=== PATIENT | female | born 1945 | race Caucasian/White ===

== ENCOUNTER 2016-07-09 09:48 | Day surgery (SDC) | payer BC ==
[2016-06-11 11:10] LABS: HEMATOCRIT 34.7 % (36.0-47.0); HEMOGLOBIN 11.3 g/dL (12.0-15.5); HGB HCT DIFFERENCE -0.8; MEAN CORPUSCULAR HEMOGLOBIN 29.1 pg (27.0-33.4); MEAN CORPUSCULAR HGB CONC 32.6 g/dL (32.0-36.0); MEAN CORPUSCULAR VOLUME 89 fl (80-97); RED BLOOD COUNT 3.88 10^6/uL (3.72-5.28); RED CELL DISTRIBUTION WIDTH 14.9 % (11.5-14.0); WHITE BLOOD COUNT 5.9 10^3/uL (4.0-10.5)
[2016-06-11 11:39] LABS: ANION GAP 11 (5-19); BLOOD UREA NITROGEN 20 mg/dL (7-20); CALCIUM 9.7 mg/dL (8.4-10.2); CARBON DIOXIDE 30 mmol/L (22-30); CHLORIDE 104 mmol/L (98-107); GLUCOSE 92 mg/dL (75-110); POTASSIUM 4.9 mmol/L (3.6-5.0); SODIUM 145.3 mmol/L (137-145)
--- NOTE | 2016-06-11 18:18 | EKG REPORT ---
SEVERITY:- DEFECTIVE ECG - NONSPECIFIC IVCD WITH LAD : Confirmed by: Sohail Ocampo MD 11-Jun-2016 18:18:03
--- NOTE | 2016-06-12 18:54 | EKG REPORT ---
SEVERITY:- ABNORMAL ECG - SINUS RHYTHM LEFT AXIS DEVIATION LEFT VENTRICULAR HYPERTROPHY : Confirmed by: Sohail Ocampo MD 12-Jun-2016 18:54:23
[~2016-07-09 09:48] MED LIST: CEFAZOLIN SODIUM 1 GM in DEXTROSE 5%-WATER 50 ML IV PRN; DEXAMETHASONE SOD PHOSPHATE INJ 4 MG/1 ML VIAL ONE; LACTATED RINGERS 1000 ML IV PRN; LIDOCAINE 0.5% INJ-PF (5 MG/ML) 50 ML SDV SUBCUT PRN; LIDOCAINE 4% TRANSPARENT DRESSING 5 GM KIT TP PRN; ONDANSETRON HCL INJ/PF 4 MG/2 ML SDV ONE; SUCCINYLCHOLINE CHLORIDE INJ 200 MG/10 ML VIAL ONE
[2016-07-09] MEDS ORDERED: MICROFIBRILLAR COLLAGEN 1 GM PACK ONE (13:20)
[2016-07-09] MEDS ORDERED: METHYLENE BLUE INJ/PF 10 MG/1 ML SDV ONE (13:20)
[2016-07-09] MEDS ORDERED: LIDOCAINE 1%/EPINEPHRINE INJ 20 ML VIAL ONE (13:20)
[2016-07-09] MEDS ORDERED: FENTANYL CITRATE INJ/PF 250 MCG/5 ML AMPULE ONE (14:51)
[2016-07-09] MEDS ORDERED: HYDROMORPHONE HCL INJ/PF 2 MG/ML AMPULE ONE (14:51)
[2016-07-09] MEDS ORDERED: MIDAZOLAM 2 MG/2 ML INJ ONE (14:51)
[2016-07-09] MEDS ORDERED: PROPOFOL INJ 200 MG/20 ML VIAL IV ONE (14:52)
[2016-07-09] MEDS ORDERED: ACETAMINOPHEN 100 ML IV ONE (14:52)
[2016-07-09] MEDS ORDERED: EPHEDRINE SULFATE INJ 50 MG/1 ML AMPULE ONE (14:52)
[2016-07-09] MEDS ORDERED: MEPERIDINE HCL/PF INJ 25 MG/1 ML DISP.SYRIN IV PRN (17:18)
[2016-07-09] MEDS ORDERED: DIPHENHYDRAMINE HCL 50 MG/ML VIAL IV PRN (17:18)
[2016-07-09] MEDS ORDERED: PROMETHAZINE HCL INJ 25 MG/1 ML VIAL IV PRN ×2 (17:18)
[2016-07-09] MEDS ORDERED: OXYCODONE-ACETAMINOPHEN 5-325 MG TABLET PO PRN ×3 (17:18→17:48)
[2016-07-09] MEDS ORDERED: MORPHINE SULFATE 10 MG/ML INJ IV PRN (17:18)
[2016-07-09] MEDS ORDERED: FENTANYL CITRATE INJ/PF 100 MCG/2 ML AMPUL IV PRN ×3 (17:18)
--- NOTE | 2016-07-09 17:47 | Operative Report ---
Operative Report DATE OF SURGERY: 07/09/16 PREOPERATIVE DIAGNOSIS: Triple positive right breast cancer status post neoadjuvant 4 component chemotherapy POSTOPERATIVE DIAGNOSIS: Same OPERATION: 1. Right mastectomy. 2. Right sentinel lymph node biopsy 1. 3. Drain placement right chest wall SURGEON: SERA RUBY ANESTHESIA: GA TISSUE REMOVED OR ALTERED: Right breast; into the lymph node biopsy times one; inferior chest wall skin margin COMPLICATIONS: None ESTIMATED BLOOD LOSS: 50 mL INTRAOPERATIVE FINDINGS: see below PROCEDURE: The patient was seen in the preop holding area with a right breast was examined. The patient previously undergone lymphoscintigraphy of the right breast and there was an area of increased uptake in the right axilla. At bedside in the holding area, the neoprobe was demonstrated to have increased activity in the right axilla consistent with a successful migration of radionuclide. Patient taken the operating room general anesthesia was induced. The right arm was abducted. Proceeded to utilize the dual mapping technique, and injected into the right breast, periareolar region, 10 o'clock position approximately 2 mL of full strength methylene blue with 25-gauge needle. Right breast was massaged for 7 minutes. The right arm was thoroughly abducted and the right breast prepped and draped sterile fashion. Surgical plan surgical timeout were conducted. Markings were made on the right breast for plan mastectomy. An elliptical from below the areola and axilla to the right parasternal region. Superior and inferior skin flaps of satisfactory thickness was developed with subsequent taken off of the chest wall from the subpectoral fascia down to the serratus anterior musculature. We did not encounter any fibrosis or evidence of malignancy. We proceeded to perform the sentinel node biopsy now that we have excellent exposure merging axilla. A single sentinel lymph node was harvested which was blue and hot in vivo count was 23,900 and ex vivo count was 24, 101. Chronic counts were negligible. Only one sentinel lymph node was harvested. Chest medially and laterally and inferiorly and found no further radionuclear activity. We concluded the sentinel node harvest with finished. A large 15 Hungarian Naveed drain was placed inferior skin flap, secured to skin with 2-0 Prolene suture, and the wound closed with 2-0 Vicryl and Dermabond glue. Prior to closure of the mastectomy wound, of the inferior skin flap was sharply debrided was sent with the mastectomy specimen as inferior skin flap. The patient on procedure well, extubated and taken recovery in stable condition.
[2016-07-09] MEDS ORDERED: ONDANSETRON HCL INJ/PF 4 MG/2 ML SDV IV PRN (17:48)
[2016-07-09] MEDS ORDERED: FENTANYL CITRATE INJ/PF 100 MCG/2 ML AMPUL ONE (18:08)
[2016-07-09] MEDS ORDERED: FENTANYL CITRATE INJ/PF 100 MCG/2 ML AMPUL INJ ONE (18:11)
[2016-07-10] MEDS ORDERED: RINGERS SOLUTION,LACTATED 1,000 ML IV ONE (04:15)
[2016-07-10] MEDS ORDERED: IBUPROFEN 600 MG TABLET PO PRN (07:46)
--- NOTE | 2016-07-10 10:20 | DISCHARGE SUMMARY E ---
Discharge Summary NAME: CLAUDIA MAY : 1945 AGE: 70Y ADMITTED: 07/09/2016 DISCHARGED: 07/10/2016 REASON FOR ADMISSION: Right breast cancer. HOSPITALIZATION: The patient is a 70[facility]-old [facility] with triple positive right breast cancer status post neoadjuvant chemotherapy. She is brought into ambulatory surgery for sentinel node biopsy, mastectomy. The procedure was performed by Dr. Fajardo. She tolerated the procedure well. Due to lateness of hour, she was admitted overnight for observation. The following morning, she was doing well, tolerating a diet and understood her drain care. Her flaps were viable. She was felt ready for discharge home. FINAL DIAGNOSIS: Triple positive right breast cancer status post neoadjuvant chemotherapy, now status post right mastectomy, sentinel node biopsy and drain placement. DISPOSITION: The patient will be discharged home in the care of family. Followup with Dr. Fajardo in approximately one week. Take Motrin for p.r.n. pain. Resume her preoperative medications and diet. DICTATING PHYSICIAN: SERA FAJARDO M.D. [id number] PHY#: [id number] ID: [id number] JOB#: [id number] ACCT: [id number] cc:SERA FAJARDO M.D. >
[2016-07-10 12:36] VITALS: BP 107/54
== END 2016-07-10 13:30 | disposition home or self-care (01) ==
LOC: OROUT 09:48 → 4N 19:00 → OROUT 07-10 13:30
PROVIDERS: ATTEND Surgery
PROC: 07B50ZX Excision of Right Axillary Lymphatic, Open Approach, Diagnostic (ICD-10-PCS; 2016-07-09)
PROC: 0HTT0ZZ Resection of Right Breast, Open Approach (ICD-10-PCS; principal; 2016-07-09 13:30)
DX: C50.919 Malignant neoplasm of unspecified site of unspecified female breast (principal); E78.00 Pure hypercholesterolemia, unspecified; M06.9 Rheumatoid arthritis, unspecified; I10 Essential (primary) hypertension; Z79.899 Other long term (current) drug therapy
CPT/HCPCS: 93005 ×2; 36415; 85027; 80048; 88342 ×2; 88341 ×2; 88307 ×2; 78195; 93010 ×2; 19307; A9520; J2250; J0690; J1100; J3490 ×2; J3010 ×2; Q9968; J1170; J0330; J2405; J7120 ×2; J2704; J0131; 1610

== ENCOUNTER 2016-07-12 09:59 | Emergency (ER) | payer MEDICARE, BC ==
--- NOTE | 2016-07-12 10:08 | ER Document Report ---
ED Medical Screen (RME) - General Stated Complaint: DIZZINESS Mode of Arrival: Wheelchair Information source: Patient Notes: Patient presents complaining of dizziness and hypotension, family report the patient's blood pressure was 80/67 at home. Patient is status post recent mastectomy on 07/09/2016. Patient denies any chest pain, nausea, or vomiting. Patient does report shortness of breath. Family states that she has had problems with hypotension since her mastectomy. I have greeted and performed a rapid initial assessment of this patient. A comprehensive ED assessment and evaluation of the patient, analysis of test results and completion of the medical decision making process will be conducted by additional ED providers. TRAVEL OUTSIDE OF THE [place] IN LAST 30 DAYS: No - Related Data Allergies/Adverse Reactions: No Known Allergies Allergy (Verified 07/12/16 10:03) Past Medical History - Past Medical History Cardiac Medical History: Reports: Hx Hypertension Denies: Hx Coronary Artery Disease, Hx Heart Attack Pulmonary Medical History: Denies: Hx Asthma, Hx Bronchitis, Hx COPD, Hx Pneumonia Neurological Medical History: Denies: Hx Cerebrovascular Accident, Hx Seizures Malignancy Medical History: Reports: Hx Breast Cancer - Right Musculoskeltal Medical History: Reports Hx Arthritis - rt hip worse than left Past Surgical History: Reports: Hx Appendectomy, Hx Hysterectomy - Immunizations Hx Diphtheria, Pertussis, Tetanus Vaccination: No Physical Exam - Respiratory Respiratory status: No respiratory distress Breath sounds: Normal
--- NOTE | 2016-07-12 10:32 | EKG REPORT ---
SEVERITY:- NORMAL ECG - SINUS RHYTHM : Confirmed by: Myles Crystal 12-Jul-2016 10:32:26
[2016-07-12] MEDS ORDERED: NORMAL SALINE 1000 ML 1,000 ML IV ONE (11:15)
--- NOTE | 2016-07-12 11:19 | ER Document Report ---
ED Dizziness/Weakness - General Chief Complaint: Dizziness Stated Complaint: DIZZINESS Mode of Arrival: Wheelchair Notes: The patient is a 70 year old female, past medical history breast cancer status post mastectomy 4 days ago, vertigo, hypertension, presents with an episode of lightheadedness and vertiginous symptoms started earlier today. Her daughter took the blood pressure and it was 80/50. She did not take her blood pressure medications this morning. She is also feeling mild shortness of breath. Denies ataxia, blurry vision, numbness, tingling, headache, chest pain, abdominal pain, nausea, vomiting fevers or urinary symptoms. TRAVEL OUTSIDE OF THE [place] IN LAST 30 DAYS: No - Related Data Allergies/Adverse Reactions: No Known Allergies Allergy (Verified 07/12/16 10:03) Past Medical History - General Information source: Patient - Social History Smoking Status: Unknown if Ever Smoked Chew tobacco use (# tins/day): No Frequency of alcohol use: None Drug Abuse: None Family History: Reviewed & Not Pertinent Patient has suicidal ideation: No Patient has homicidal ideation: No - Past Medical History Cardiac Medical History: Reports: Hx Hypertension Denies: Hx Coronary Artery Disease, Hx Heart Attack Pulmonary Medical History: Denies: Hx Asthma, Hx Bronchitis, Hx COPD, Hx Pneumonia Neurological Medical History: Denies: Hx Cerebrovascular Accident, Hx Seizures Renal/ Medical History: Denies: Hx Peritoneal Dialysis Malignancy Medical History: Reports: Hx Breast Cancer - Right Musculoskeltal Medical History: Reports Hx Arthritis - rt hip worse than left Past Surgical History: Reports: Hx Appendectomy, Hx Hysterectomy - Immunizations Hx Diphtheria, Pertussis, Tetanus Vaccination: No Review of Systems - Review of Systems Notes: REVIEW OF SYSTEMS: CONSTITUTIONAL: -fevers, -chills EENT: -eye pain, -difficulty swallowing, -nasal congestion CARDIOVASCULAR:-chest pain, -syncope. RESPIRATORY: -cough, +SOB GASTROINTESTINAL: -abdominal pain, - nausea, -vomiting, -diarrhea GENITOURINARY: -dysuria, -hematuria MUSCULOSKELETAL: -back pain, -neck pain SKIN: -rash or skin lesions. HEMATOLOGIC: -easy bruising or bleeding. LYMPHATIC: -swollen, enlarged glands. NEUROLOGICAL: -altered mental status or loss of consciousness, -headache, - neurologic symptoms PSYCHIATRIC: -anxiety, -depression. ALL OTHER SYSTEMS REVIEWED AND NEGATIVE. Physical Exam - Vital signs Vitals: Temp Pulse Resp BP Pulse Ox 97.9 F 83 14 144/63 H 100 07/12/16 10:04 07/12/16 10:04 07/12/16 10:04 07/12/16 10:04 07/12/16 10:04 - Notes Notes: PHYSICAL EXAMINATION: GENERAL: Well-appearing, well-nourished and in no acute distress. HEAD: Atraumatic, normocephalic. EYES: Pupils equal round and reactive to light, extraocular movements intact, sclera anicteric, conjunctiva are normal. ENT: nares patent, oropharynx clear without exudates. Moist mucous membranes. NECK: Normal range of motion, supple without lymphadenopathy LUNGS: Breath sounds clear to auscultation bilaterally and equal. No wheezes rales or rhonchi. 50 mL blood in drain out of right chest wall. HEART: Regular rate and rhythm without murmurs ABDOMEN: Soft, nontender, normoactive bowel sounds. No guarding, no rebound. No masses appreciated. EXTREMITIES: Normal range of motion, no pitting or edema. No cyanosis. NEUROLOGICAL: Cranial nerves grossly intact. Normal speech, normal gait. Normal sensory, motor, and reflex exams. PSYCH: Normal mood, normal affect. SKIN: Well-healing surgical scars with contusions. Warm, Dry, normal turgor, no rashes or lesions noted. Course - Re-evaluation Re-evalutation: High suspicion for PE on arrival with hypotension, mild shortness of breath and recent mastectomy from breast cancer. CTA does not show any evidence of PE. Labs are unremarkable. Multiple repeat blood pressures in the emergency room are 120's/80's. No orthostatic symptoms after IV fluids. Told patient to hold off on taking her losartan and to keep a log of her blood pressures. Also instructed her to drink plenty of fluids. Will have her follow-up with her primary care physician in 1-2 days. Given strict return precautions and she understands. - Vital Signs Vital signs: Temp Pulse Resp BP Pulse Ox 97.9 F 83 14 144/63 H 99 07/12/16 10:04 07/12/16 10:04 07/12/16 10:04 07/12/16 10:04 07/12/16 11:34 - Laboratory Result Diagrams: 07/12/16 11:26 07/12/16 11:26 Laboratory results interpreted by me: 07/12/16 07/12/16 11:26 11:26 RBC 3.12 L Hgb 8.7 L Hct 26.6 L RDW 15.2 H Total Protein 6.1 L Discharge - Discharge Clinical Impression: Orthostatic lightheadedness Condition: Good Disposition: HOME, SELF-CARE Additional Instructions: NEAR SYNCOPAL EPISODE: Syncope or near syncope (fainting or near-fainting) can occur from many different health problems. Or it can be a simple fainting spell requiring no treatment. It is safe for you to go home, but further evaluation will likely be necessary. Your work-up may include tests for internal bleeding, heart disease, medication problems, or near-strokes. Tests are not always required, however, depending on the nature of your problem. The warning signs of an impending faint include: dizziness, lightheadedness , nausea, hot flashes, tingling, and weakness. If this happens, lay down and put your feet up, then wait until all of these symptoms have passed before standing up again. If these episodes become recurrent, or if you develop chest pain, heart palpitations, mental confusion, blurred vision, or headache, then you should call the physician, or go to the emergency room. NORMAL EXAM AND WORKUP: At this time, your examination and workup show no significant abnormality. No significant abnormal physical findings were noted. All laboratory, EKG, and imaging (x-ray, CT scans, ultrasound) studies that were ordered show no significant abnormality. Although your examination and all studies that were ordered showed no significant abnormal finding, there are no examinations and no studies that are 100% accurate. There is always the possibility that some abnormality could exist and not be detected with physical examination or within the limits and capabilities of laboratory and other studies. You should return or follow up as you were instructed on your visit today for further evaluation if your symptoms do not resolve. FOLLOW-UP CARE: If you have been referred to a physician for follow-up care, call the physician s office for an appointment as you were instructed or within the next two days. If you experience worsening or a significant change in your symptoms, notify the physician immediately or return to the Emergency Department at any time for re-evaluation. Print Language: Syriac
[2016-07-12 11:33] LABS: APPEARANCE,URINE CLEAR; BILIRUBIN,URINE NEGATIVE (NEGATIVE); GLUCOSE, URINE NEGATIVE (NEGATIVE); KETONES,URINE NEGATIVE (NEGATIVE); LEUKOCYTE ESTERASE,URINE NEGATIVE (NEGATIVE); NITRITE,URINE NEGATIVE (NEGATIVE); PROTEIN,URINE NEGATIVE (NEGATIVE); URINE SPECIFIC GRAVITY 1.003; UROBILINOGEN,URINE NEGATIVE mg/dL (<2.0)
[2016-07-12 11:43] LABS: ABSOLUTE BASOPHILS # (AUTO) 0.1 10^3/uL (0.0-0.2); ABSOLUTE EOSINOPHILS # (AUTO) 0.1 10^3/uL (0.0-0.6); ABSOLUTE LYMPHOCYTES (AUTO) 1.5 10^3/uL (0.5-4.7); ABSOLUTE MONOCYTES (AUTO) 0.6 10^3/uL (0.1-1.4); ABSOLUTE NEUT (AUTO) 4.4 10^3/uL (1.7-8.2); EOSINOPHILS % (AUTO) 1.9 % (0-6); HEMATOCRIT 26.6 % (36.0-47.0); HEMOGLOBIN 8.7 g/dL (12.0-15.5); HGB HCT DIFFERENCE -0.5; LYMPHOCYTES % (AUTO) 22.8 % (13-45); MEAN CORPUSCULAR HEMOGLOBIN 27.9 pg (27.0-33.4); MEAN CORPUSCULAR HGB CONC 32.7 g/dL (32.0-36.0); MEAN CORPUSCULAR VOLUME 85 fl (80-97); MONOCYTES % (AUTO) 8.5 % (3-13); RED BLOOD COUNT 3.12 10^6/uL (3.72-5.28); RED CELL DISTRIBUTION WIDTH 15.2 % (11.5-14.0); SEGMENTED NEUTROPHILS % (AUTO) 65.8 % (42-78); WHITE BLOOD COUNT 6.7 10^3/uL (4.0-10.5)
[2016-07-12 11:59] LABS: ALANINE AMINOTRANSFERASE 26 U/L (9-52); ALBUMIN 3.7 g/dL (3.5-5.0); ALKALINE PHOSPHATASE 79 U/L (38-126); ANION GAP 10 (5-19); ASPARTATE AMINO TRANSFERASE 22 U/L (14-36); BILIRUBIN,TOTAL 0.4 mg/dL (0.2-1.3); BLOOD UREA NITROGEN 20 mg/dL (7-20); CALCIUM 9.5 mg/dL (8.4-10.2); CARBON DIOXIDE 28 mmol/L (22-30); CHLORIDE 106 mmol/L (98-107); CREATINE KINASE 104 U/L (30-135); CREATININE RESULT 0.67 mg/dL (0.52-1.25); GLUCOSE 93 mg/dL (75-110); POTASSIUM 4.3 mmol/L (3.6-5.0); SODIUM 143.8 mmol/L (137-145); TOTAL PROTEIN 6.1 g/dL (6.3-8.2)
[2016-07-12 12:52] VITALS: BP 129/66
== END 2016-07-12 12:59 | disposition home or self-care (01) ==
LOC: ER 09:59
DX: R42 Dizziness and giddiness (principal); I95.1 Orthostatic hypotension; R06.02 Shortness of breath; I10 Essential (primary) hypertension; Z85.3 Personal history of malignant neoplasm of breast; Z90.11 Acquired absence of right breast and nipple; Z98.890 Other specified postprocedural states; Z90.710 Acquired absence of both cervix and uterus
CPT/HCPCS: 93005; 99284; 36415; 82550; 83735; 85025; 80053; 81001; 84484; 71020; 71275; 93010; J7030

== ENCOUNTER → 2016-07-30 | Outpatient (CLI) | payer MEDICARE, BC | LOC: RAD 11:32 | PROVIDERS: ATTEND Specialist | DX: M25.551 Pain in right hip (principal); M25.561 Pain in right knee ==

== ENCOUNTER → 2016-08-25 | Outpatient (CLI) | payer BC, MEDICARE ==
--- NOTE | 2016-08-28 19:35 | XCELERA REPORT ---
[address] [address] Transthoracic Echocardiogram Report Name: CLAUDIA MAY Age: 70 yrs Gender: Female : 1945 Patient Status: Outpatient Patient Location: Study Date: 08/25/2016 01:09 PM Height: 63 in Weight: 180 lb BSA: 1.8 m2 Procedure: A complete two-dimensional transthoracic echocardiogram was performed (2D, M-mode, spectral and color flow Doppler). The study was technically difficult with many images being suboptimal in quality. Reason For Study: USE OF ANTHRACYCLINES Ordering Physician: ROXI IRENE Performed By: Jennifer Ricardo Interpretation Summary The left ventricular ejection fraction is normal. There is normal left ventricular wall thickness. The left ventricle is grossly normal size. Doppler measurements suggest impaired left ventricular relaxation, which is associated with grade I/IV or mild diastolic dysfunction Wall motion cannot be accurately commented on, but no definite regional wall motion abnormalities noted. The right ventricle is grossly normal size. The right ventricular systolic function is normal. The right atrium is normal. The left atrial size is normal. There is a trace amount of mitral regurgitation There is no mitral valve stenosis. There is no aortic valve stenosis No aortic regurgitation is present. There is a trace or physiologic amount of tricuspid regurgitation Tricuspid regurgitation jet envelope not well defined to measure RV systolic pressure accurately. The aortic root is not well visualized but is probably normal size. The inferior vena cava was not well visualized There is no pericardial effusion. MMode/2D Measurements \T\ Calculations RVDd: 2.8 cm LVIDd: 4.8 cm FS: 37.6 % Ao root diam: 2.8 cm IVSd: 0.91 cm LVIDs: 3.0 cm EDV(Teich): 108.5 ml LVPWd: 0.88 cmESV(Teich): 35.2 ml Ao root area: 6.2 cm2 EF(Teich): 67.6 % LA dimension: 3.6 cm LVOT diam: 2.0 cm LVOT area: 3.2 cm2 Doppler Measurements \T\ Calculations MV E max haydee: MV P1/2t max haydee: Ao V2 max: LV V1 max P.9 cm/sec 56.9 cm/sec 119.9 cm/sec 3.5 mmHg MV A max haydee: MV P1/2t: 65.8 msec Ao max PG: LV V1 max: 84.3 cm/sec MVA(P1/2t): 3.3 cm2 5.7 mmHg 92.9 cm/sec MV E/A: 0.67 MV dec slope: AMBER(V,D): 2.4 cm2 253.1 cm/sec2 PA V2 max: TR max haydee: 79.0 cm/sec 210.4 cm/sec PA max PG: TR max P.7 mmHg 2.5 mmHg Left Ventricle The left ventricle is grossly normal size. There is normal left ventricular wall thickness. The left ventricular ejection fraction is normal. Doppler measurements suggest impaired left ventricular relaxation, which is associated with grade I/IV or mild diastolic dysfunction. Wall motion cannot be accurately commented on, but no definite regional wall motion abnormalities noted. Right Ventricle The right ventricle is grossly normal size. There is normal right ventricular wall thickness. The right ventricular systolic function is normal. Atria The right atrium is normal. The left atrial size is normal. Interarterial septum not well visualized and not well dopplered. Cannot comment on ASD/PFO presence. Mitral Valve The mitral valve is grossly normal. There is no mitral valve stenosis. There is a trace amount of mitral regurgitation. Aortic Valve The aortic valve is not well visualized secondary to technical limitations. There is no aortic valve stenosis. No aortic regurgitation is present. Tricuspid Valve The tricuspid valve is not well visualized secondary to technical limitations. There is no tricuspid stenosis. There is a trace or physiologic amount of tricuspid regurgitation. Tricuspid regurgitation jet envelope not well defined to measure RV systolic pressure accurately. Pulmonic Valve The pulmonic valve is not well visualized. Great Vessels The aortic root is not well visualized but is probably normal size. The inferior vena cava was not well visualized. Effusions There is no pericardial effusion. : ROXI IRENE > Myles Crystal
== END ==
LOC: SP 12:52
PROVIDERS: ATTEND Specialist
DX: Z51.11 Encounter for antineoplastic chemotherapy (principal); Z79.899 Other long term (current) drug therapy
CPT/HCPCS: 93306

== ENCOUNTER → 2016-09-02 | Outpatient (CLI) | payer BC | LOC: RAD 08:18 | PROVIDERS: ATTEND Internal Medicine | DX: C50.411 Malignant neoplasm of upper-outer quadrant of right female breast (principal) | CPT/HCPCS: 78306; A9503; Q9969 ==

== ENCOUNTER → 2016-09-09 | Outpatient (CLI) | payer BC ==
--- NOTE | 2016-09-09 12:42 | EKG REPORT ---
SEVERITY:- ABNORMAL ECG - SINUS RHYTHM LEFT ANTERIOR FASCICULAR BLOCK PROBABLE LEFT VENTRICULAR HYPERTROPHY : Confirmed by: Jaylin Nunez MD 09-Sep-2016 12:38:34
[2016-09-09 13:11] LABS: ABSOLUTE MONOCYTES (AUTO) 0.3 10^3/uL (0.1-1.4); BASOPHILS % (AUTO) 0.9 % (0-2); EOSINOPHILS % (AUTO) 0.8 % (0-6); HEMATOCRIT 33.6 % (36.0-47.0); HEMOGLOBIN 11.3 g/dL (12.0-15.5); HGB HCT DIFFERENCE 0.3; MEAN CORPUSCULAR HEMOGLOBIN 26.7 pg (27.0-33.4); MEAN CORPUSCULAR HGB CONC 33.6 g/dL (32.0-36.0); MEAN CORPUSCULAR VOLUME 80 fl (80-97); MONOCYTES % (AUTO) 5.5 % (3-13); RED BLOOD COUNT 4.23 10^6/uL (3.72-5.28); RED CELL DISTRIBUTION WIDTH 15.8 % (11.5-14.0); SEGMENTED NEUTROPHILS % (AUTO) 73.8 % (42-78); WHITE BLOOD COUNT 5.4 10^3/uL (4.0-10.5)
[2016-09-09 13:18] LABS: ANION GAP 11 (5-19); BLOOD UREA NITROGEN 17 mg/dL (7-20); CALCIUM 10.4 mg/dL (8.4-10.2); CARBON DIOXIDE 29 mmol/L (22-30); CHLORIDE 101 mmol/L (98-107); CREATININE RESULT 0.83 mg/dL (0.52-1.25); GLUCOSE 98 mg/dL (75-110); POTASSIUM 4.7 mmol/L (3.6-5.0); SODIUM 141.4 mmol/L (137-145)
[2016-09-09 14:21] LABS: APPEARANCE,URINE SLIGHTLY-CLOUDY; BILIRUBIN,URINE NEGATIVE (NEGATIVE); GLUCOSE, URINE NEGATIVE (NEGATIVE); KETONES,URINE NEGATIVE (NEGATIVE); LEUKOCYTE ESTERASE,URINE LARGE (NEGATIVE); NITRITE,URINE POSITIVE (NEGATIVE); PROTEIN,URINE NEGATIVE (NEGATIVE); URINE SPECIFIC GRAVITY 1.005; UROBILINOGEN,URINE NEGATIVE mg/dL (<2.0)
== END ==
LOC: OD 11:50
PROVIDERS: ATTEND Orthopaedic Surgery
DX: Z01.811 Encounter for preprocedural respiratory examination (principal); Z01.812 Encounter for preprocedural laboratory examination; Z01.818 Encounter for other preprocedural examination
CPT/HCPCS: 36415; 71020; 80048; 81001; 85025; 93005; 93010

== ENCOUNTER → 2016-10-27 | Outpatient (CLI) | payer BC ==
--- NOTE | 2016-10-27 15:38 | RADIOLOGY REPORT (SQ) ---
EXAM DESCRIPTION: VENOUS UNILATERAL LOWER COMPLETED DATE/TIME: 10/27/2016 3:26 pm REASON FOR STUDY: DVT I82.449 I82.449 ACUTE EMBOLISM AND THROMBOSIS OF UNSPECIFIED TIBIAL COMPARISON: None. TECHNIQUE: Dynamic and static live scale and color images acquired of the right leg venous system. S elected spectral images acquired with additional compression and augmentation maneuvers. The contrala teral common femoral vein and saphenofemoral junction were also imaged. Images stored on PACS. LIMITATIONS: None. FINDINGS: RIGHT COMMON FEMORAL: Normal phasicity, compression and augmentation. No visualized echogenic material on g ray scale. No defects on color images. FEMORAL: Normal compression and augmentation. No visualized echogenic material on live scale. No defe cts on color images. POPLITEAL: Normal compression, augmentation. No visualized echogenic material on live scale. No defec ts on color images. CALF VESSELS: Normal compression, augmentation. No visualized echogenic material on live scale. No de fects on color images. GSV and SSV: Normal compression, augmentation. No visualized echogenic material on live scale. No def ects on color images. ANY DEEP VENOUS INSUFFICIENCY: Not evaluated. ANY EVIDENCE OF POPLITEAL CYST: No. OTHER: No other significant finding. LEFT COMMON FEMORAL VEIN AND SAPHENOFEMORAL JUNCTION: Normal phasicity, compression and augmentation. No visualized echogenic material on live scale. No de fects on color images. IMPRESSION: NO EVIDENCE OF DVT OR SVT IN THE RIGHT LEG. TECHNICAL DOCUMENTATION: JOB ID: [id number] [employer]- All Rights Reserved
== END ==
LOC: SP 14:44
PROVIDERS: ATTEND Specialist
DX: I82.449 Acute embolism and thrombosis of unspecified tibial vein (principal)
CPT/HCPCS: 93971

== ENCOUNTER → 2016-11-04 | Outpatient (CLI) | payer BC ==
--- NOTE | 2016-11-04 11:31 | XCELERA REPORT ---
[address] [address] Transthoracic Echocardiogram Report Name: CLAUDIA MAY Age: 70 yrs Gender: Female : 1945 Patient Status: Outpatient Patient Location: Study Date: 11/04/2016 09:14 AM Height: 63 in Weight: 170 lb BSA: 1.8 m2 Procedure: A complete two-dimensional transthoracic echocardiogram was performed (2D, M-mode, spectral and color flow Doppler). The study was technically adequate with some images being suboptimal in quality. Reason For Study: USE OF ANTHRACYCLINES Ordering Physician: ROXI IRENE Performed By: Makeda Londono Interpretation Summary The left ventricular ejection fraction is normal. Doppler measurements suggest pseudonormalized left ventricular relaxation, which is associated with grade II/IV or mild to moderate diastolic dysfunction There is borderline concentric left ventricular hypertrophy. The left ventricle is grossly normal size. Wall motion cannot be accurately commented on, but no definite regional wall motion abnormalities noted. The Ejection Fraction estimate is 60-65% The right ventricular systolic function is normal. The left atrium is mildly dilated. The right atrium is normal in size There is a mild amount of mitral regurgitation There is no mitral valve stenosis. No aortic regurgitation is present. There is no aortic valve stenosis There is a mild amount of tricuspid regurgitation There is mild pulmonary hypertension by echo Right ventricular systolic pressure is estimated to be elevated at 30- 40mmHg. The aortic root is not well visualized but is probably normal size. The inferior vena cava appeared normal and decreased > 50% with respiration (RAP 5-10 mmHg) There is no pericardial effusion. MMode/2D Measurements \T\ Calculations RVDd: 3.0 cm LVIDd: 4.8 cm FS: 38.7 % Ao root diam: 2.5 cm IVSd: 0.86 cm LVIDs: 2.9 cm EDV(Teich): 105.4 ml LVPWd: 0.87 cm ESV(Teich): 32.7 ml Ao root area: 4.8 cm2 EF(Teich): 69.0 % LA dimension: 3.7 cm Doppler Measurements \T\ Calculations MV E max haydee: MV P1/2t max haydee: Ao V2 max: LV V1 max P.4 cm/sec 85.4 cm/sec 126.5 cm/sec 4.3 mmHg MV A max haydee: MV P1/2t: 69.4 msec Ao max PG: LV V1 max: 86.9 cm/sec 6.4 mmHg 103.1 cm/sec MV E/A: 0.97 MVA(P1/2t): 3.2 cm2 MV dec slope: 360.2 cm/sec2 MV dec time: 0.23 sec PA V2 max: TR max haydee: 79.0 cm/sec 281.2 cm/sec PA max PG: TR max P.6 mmHg 2.5 mmHg Left Ventricle The left ventricle is grossly normal size. There is borderline concentric left ventricular hypertrophy. The left ventricular ejection fraction is normal. The Ejection Fraction estimate is 60-65%. Doppler measurements suggest pseudonormalized left ventricular relaxation, which is associated with grade II/IV or mild to moderate diastolic dysfunction. Wall motion cannot be accurately commented on, but no definite regional wall motion abnormalities noted. Right Ventricle The right ventricle is normal in size, thickness and function. There is normal right ventricular wall thickness. The right ventricular systolic function is normal. Atria The right atrium is normal in size. The left atrium is mildly dilated. Interarterial septum not well visualized and not well dopplered. Cannot comment on ASD/PFO presence. Mitral Valve The mitral valve leaflets are sclerotic, but show no functional abnormalities. There is no mitral valve stenosis. There is a mild amount of mitral regurgitation. Aortic Valve The aortic valve is grossly normal. There is no aortic valve stenosis. No aortic regurgitation is present. Tricuspid Valve The tricuspid valve is not well visualized, but is grossly normal. There is no tricuspid stenosis. There is a mild amount of tricuspid regurgitation. There is mild pulmonary hypertension by echo. Right ventricular systolic pressure is estimated to be elevated at 30-40mmHg. Pulmonic Valve The pulmonic valve is not well visualized. Great Vessels The aortic root is not well visualized but is probably normal size. The inferior vena cava appeared normal and decreased > 50% with respiration (RAP 5-10 mmHg). Effusions There is no pericardial effusion. : ROXI IRENE > Myles Crystal
== END ==
LOC: SP 08:34
PROVIDERS: ATTEND Specialist
DX: Z51.11 Encounter for antineoplastic chemotherapy (principal)
CPT/HCPCS: 93306

== ENCOUNTER 2016-11-17 10:35 | Inpatient (IN) | payer BC ==
--- NOTE | 2016-11-06 16:20 | RADIOLOGY REPORT (SQ) ---
EXAM DESCRIPTION: CHEST PA/LATERAL COMPLETED DATE/TIME: 11/06/2016 4:08 pm REASON FOR STUDY: PRE OP COMPARISON: CT angio chest 07/12/2016 Two-view chest 09/09/2016 EXAM PARAMETERS: NUMBER OF VIEWS: two views TECHNIQUE: Digital Frontal and Lateral radiographic views of the chest acquired. RADIATION DOSE: NA LIMITATIONS: none FINDINGS: LUNGS AND PLEURA: No opacities, masses or pneumothorax. No pleural effusion. MEDIASTINUM AND HILAR STRUCTURES: No masses or contour abnormalities. HEART AND VASCULAR STRUCTURES: Heart normal size. No evidence for failure. BONES: No acute findings. HARDWARE: Clips right chest post mastectomy. Left-sided permanent central line tip superior vena cav a. OTHER: No other significant finding. IMPRESSION: No acute findings TECHNICAL DOCUMENTATION: JOB ID: [id number] [employer]- All Rights Reserved
[2016-11-06 16:35] LABS: APPEARANCE,URINE CLEAR; BILIRUBIN,URINE NEGATIVE (NEGATIVE); GLUCOSE, URINE NEGATIVE (NEGATIVE); KETONES,URINE NEGATIVE (NEGATIVE); LEUKOCYTE ESTERASE,URINE NEGATIVE (NEGATIVE); NITRITE,URINE NEGATIVE (NEGATIVE); PROTEIN,URINE NEGATIVE (NEGATIVE); URINE SPECIFIC GRAVITY 1.003; UROBILINOGEN,URINE NEGATIVE mg/dL (<2.0)
[2016-11-06 16:37] LABS: HEMATOCRIT 34.7 % (36.0-47.0); HEMOGLOBIN 11.1 g/dL (12.0-15.5); HGB HCT DIFFERENCE -1.4; MEAN CORPUSCULAR HEMOGLOBIN 25.5 pg (27.0-33.4); MEAN CORPUSCULAR HGB CONC 32.2 g/dL (32.0-36.0); MEAN CORPUSCULAR VOLUME 79 fl (80-97); RED BLOOD COUNT 4.37 10^6/uL (3.72-5.28); RED CELL DISTRIBUTION WIDTH 16.9 % (11.5-14.0); WHITE BLOOD COUNT 5.8 10^3/uL (4.0-10.5)
[2016-11-06 17:02] LABS: ANION GAP 13 (5-19); BLOOD UREA NITROGEN 17 mg/dL (7-20); CALCIUM 9.8 mg/dL (8.4-10.2); CARBON DIOXIDE 25 mmol/L (22-30); CHLORIDE 102 mmol/L (98-107); CREATININE RESULT 0.67 mg/dL (0.52-1.25); GLUCOSE 106 mg/dL (75-110); POTASSIUM 4.2 mmol/L (3.6-5.0); SODIUM 140.2 mmol/L (137-145)
--- NOTE | 2016-11-06 22:21 | EKG REPORT ---
SEVERITY:- OTHERWISE NORMAL ECG - SINUS RHYTHM LEFT AXIS DEVIATION : Confirmed by: Myles Crystal 06-Nov-2016 22:21:21
[~2016-11-17 10:35] MED LIST changes: +CEFAZOLIN INJ 1 GM VIAL INJ PRN; -CEFAZOLIN SODIUM 1 GM in DEXTROSE 5%-WATER 50 ML IV PRN; -DEXAMETHASONE SOD PHOSPHATE INJ 4 MG/1 ML VIAL ONE; +IBUPROFEN 800 MG in NORMAL SALINE 250 ML IV PRN; -LACTATED RINGERS 1000 ML IV PRN; +LANSOPRAZOLE 15 MG TAB.RAP.DR PO PRN; -LIDOCAINE 0.5% INJ-PF (5 MG/ML) 50 ML SDV SUBCUT PRN; -LIDOCAINE 4% TRANSPARENT DRESSING 5 GM KIT TP PRN; -ONDANSETRON HCL INJ/PF 4 MG/2 ML SDV ONE; +OXYCODONE HCL SR 10 MG TABLET PO PRN; -SUCCINYLCHOLINE CHLORIDE INJ 200 MG/10 ML VIAL ONE; +VANCOMYCIN HCL 1,000 MG in DEXTROSE 5%-WATER 250 ML IV PRN
[2016-11-17] MEDS ORDERED: THROMBIN (BOVINE) 5000 UNIT EPITAXIS KIT ONE (11:21)
[2016-11-17] MEDS ORDERED: THROMBIN (BOVINE) TOPICAL 20000 UNIT VIAL ONE (11:21)
[2016-11-17] MEDS ORDERED: BUPIVACAINE INJ/PF LIPOSOME/PF 266 MG/20 ML SDV ONE (11:21)
[2016-11-17] MEDS ORDERED: MIDAZOLAM 2 MG/2 ML INJ ONE (11:32)
[2016-11-17] MEDS ORDERED: TRANEXAMIC ACID INJ/PF 1,000 MG/10 ML SDV IV ONE ×2 (11:33→16:00)
[2016-11-17] MEDS ORDERED: PROPOFOL INJ 200 MG/20 ML VIAL IV ONE (11:33)
[2016-11-17] MEDS ORDERED: DIPHENHYDRAMINE HCL 50 MG/ML VIAL IV PRN ×2 (12:40→13:23)
[2016-11-17] MEDS ORDERED: MEPERIDINE HCL/PF INJ 25 MG/1 ML DISP.SYRIN IV PRN (12:40)
[2016-11-17] MEDS ORDERED: PROMETHAZINE HCL INJ 25 MG/1 ML VIAL IV PRN (12:40)
[2016-11-17] MEDS ORDERED: MORPHINE SULFATE 10 MG/ML INJ IV PRN ×3 (12:40→13:23)
[2016-11-17] MEDS ORDERED: FENTANYL CITRATE INJ/PF 100 MCG/2 ML AMPUL IV PRN ×2 (12:40)
[2016-11-17] MEDS ORDERED: MORPHINE SULFATE 10 MG/ML INJ IM PRN (13:23)
[2016-11-17] MEDS ORDERED: ONDANSETRON 4 MG TAB.RAPDIS PO PRN (13:23)
[2016-11-17] MEDS ORDERED: ONDANSETRON HCL INJ/PF 4 MG/2 ML SDV IV PRN (13:23)
[2016-11-17] MEDS ORDERED: MAG HYDROX/AL HYDROX/SIMETH SUSP 30 ML UDCUP PO PRN (13:23)
[2016-11-17] MEDS ORDERED: ACETAMINOPHEN 325 MG TABLET PO PRN (13:23)
--- NOTE | 2016-11-17 13:23 | Operative Report ---
Operative Report DATE OF SURGERY: 11/17/16 PREOPERATIVE DIAGNOSIS: Right hip arthritis OPERATION: Right hip arthroplasty SURGEON: ANTONINA BAIRD ANESTHESIA: Spinal TISSUE REMOVED OR ALTERED: Bone to pathology ESTIMATED BLOOD LOSS: 150 PROCEDURE: Implants used: Femur: [place]o Accolade 2 size 2 stem Acetabular shell: 48 mm PSL shell Liner: 36 mm flat cross-linked polyethylene liner Head:[36 chrome cobalt head -5 neck] The patient is placed in a left lateral decubitus position on the operating table. The right lower extremity and hindquarter is prepped and draped in a sterile fashion. A curvilinear incision was made over the greater trochanter a posterior approach the hip was taken. The femoral head is dislocated and the femoral neck transected using an oscillating saw. Attention was next turned to the acetabulum. Soft tissues cleared off the acetabulum using electrocautery. The acetabulum was then prepared using a series of hemispherical reamers until a 48 millimeters reamer is seated. Subsequently a 4848 millimeters [place] PSL [id number] shell is impacted into position and secured with one screw. A standard flat [36] millimeters cross- link liner is impacted into the shell. Attention was next turned to the femur. Access is gained to the femoral canal using a box osteotome to the piriformis fossa. The femur is then prepared using a series of broaches until a number 2 broach is seated. A trial reduction was now performed using a 36 millimeters head with -5 neck. Preoperative leg length was recreated and is excellent anterior posterior stability. A decision was made to proceed with the above construct. All trial implants were removed. The wound is irrigated with pulsed lavage. A number 2 stem is impacted into the femoral canal. A trial reduction was again performed with a 36 mm head and a -5 neck. Findings as previously. The hip was dislocated one last time and the final chrome-cobalt head is impacted onto the trunnion. The hip was reduced. Wound is copiously irrigated with pulsed lavage. Sent closed in layers using interrupted Vicryl followed by billy. A sterile dressing is applied and the patient's returned to recovery room in satisfactory patient.
--- NOTE | 2016-11-17 14:25 | RADIOLOGY REPORT (SQ) ---
EXAM DESCRIPTION: PELVIS AP COMPLETED DATE/TIME: 11/17/2016 1:52 pm REASON FOR STUDY: Post Op Long Cassette in PACU M16.11 UNILATERAL PRIMARY OSTEOARTHRITIS, RIGHT HI P COMPARISON: None. NUMBER OF VIEWS: Two views. TECHNIQUE: Digital radiographic images of the pelvis and right hip post-procedure LIMITATIONS: None. FINDINGS: BONES: No worrisome or unexpected findings post-procedure. DEVICE: There is been a total right hip replacement. In the views submitted the acetabular component appears rotated medially. There appears to be very little coverage of the lateral aspect of the stephen tabulum. SOFT TISSUES: No worrisome findings. Expected postoperative soft tissue changes. IMPRESSION: In the views submitted the acetabular component of the prosthesis appears medially rotat ed. COMMENT: This report was called to ANTONINA BAIRD MD at14:19 on 11/17/2016. TECHNICAL DOCUMENTATION: JOB ID: [id number] [employer]- All Rights Reserved
[2016-11-17] MEDS: IBUPROFEN 800 MG in NORMAL SALINE 250 ML IV SCH (17:01)
[2016-11-17] MEDS: SENNOSIDES/DOCUSATE 8.6-50 MG 1 EACH TABLET PO SCH (17:02)
[2016-11-17] MEDS: MAGNESIUM OXIDE 400 MG TABLET PO SCH (17:02)
[2016-11-17] MEDS: IRON POLYSACCHARIDES COMPLEX 150 MG CAPSULE PO SCH (17:02)
[2016-11-17] MEDS: MORPHINE SULFATE 10 MG/ML INJ IV PRN (18:12)
[2016-11-17] MEDS ORDERED: (PENDING PHARMACY ID) (Zolpidem Tartrate [Zolpidem Tartrate] 10 MG) PO SCH (22:00)
[2016-11-17] MEDS: RIVAROXABAN 10 MG TABLET PO SCH (23:23)
[2016-11-17] MEDS: OXYCODONE HCL SR 10 MG TABLET PO SCH (23:26)
[2016-11-17] MEDS: LOSARTAN POTASSIUM 50 MG TABLET PO SCH (23:26)
[2016-11-17] MEDS: RINGERS SOLUTION,LACTATED 1,000 ML IV PRN (23:26)
[2016-11-17] MEDS: ZOLPIDEM TARTRATE 5 MG TABLET PO SCH (23:27)
[2016-11-18] MEDS ORDERED: VANCOMYCIN HCL 1,000 MG in DEXTROSE 5%-WATER 250 ML IV ONE (01:30)
[2016-11-18] MEDS: IBUPROFEN 800 MG in NORMAL SALINE 250 ML IV SCH ×3 (02:22→17:28)
[2016-11-18] MEDS: PREGABALIN 75 MG CAPSULE PO SCH ×3 (03:15→23:58)
[2016-11-18] MEDS: OXYCODONE HCL IR 5 MG TABLET PO PRN ×2 (04:35→15:49)
[2016-11-18] MEDS: LANSOPRAZOLE 30 MG TAB.RAP.DR PO SCH (05:53)
[2016-11-18 07:20] LABS: HEMATOCRIT 26.7 % (36.0-47.0); HEMOGLOBIN 8.7 g/dL (12.0-15.5); HGB HCT DIFFERENCE -0.6; MEAN CORPUSCULAR HEMOGLOBIN 26.1 pg (27.0-33.4); MEAN CORPUSCULAR HGB CONC 32.7 g/dL (32.0-36.0); MEAN CORPUSCULAR VOLUME 80 fl (80-97); RED BLOOD COUNT 3.35 10^6/uL (3.72-5.28); RED CELL DISTRIBUTION WIDTH 16.8 % (11.5-14.0); WHITE BLOOD COUNT 7.2 10^3/uL (4.0-10.5)
[2016-11-18 07:40] LABS: ANION GAP 7 (5-19); BLOOD UREA NITROGEN 15 mg/dL (7-20); CALCIUM 8.6 mg/dL (8.4-10.2); CARBON DIOXIDE 25 mmol/L (22-30); CHLORIDE 105 mmol/L (98-107); CREATININE RESULT 0.72 mg/dL (0.52-1.25); GLUCOSE 105 mg/dL (75-110); POTASSIUM 3.7 mmol/L (3.6-5.0); SODIUM 136.9 mmol/L (137-145)
[2016-11-18] MEDS: PRENATAL VITAMIN W-O CA NO5/FE FUMARATE/FA CAPSULE PO SCH (09:50)
[2016-11-18] MEDS: IRON POLYSACCHARIDES COMPLEX 150 MG CAPSULE PO SCH ×2 (09:51→17:29)
[2016-11-18] MEDS: ANASTROZOLE 1 MG TABLET PO SCH (09:52)
[2016-11-18] MEDS: SENNOSIDES/DOCUSATE 8.6-50 MG 1 EACH TABLET PO SCH ×2 (09:52→17:29)
[2016-11-18] MEDS: OXYCODONE HCL SR 10 MG TABLET PO SCH ×2 (10:05→23:58)
[2016-11-18] MEDS: LOSARTAN POTASSIUM 50 MG TABLET PO SCH (10:05)
[2016-11-18] MEDS: MAGNESIUM OXIDE 400 MG TABLET PO SCH (17:29)
[2016-11-18] MEDS: MORPHINE SULFATE 10 MG/ML INJ IV PRN (17:35)
[2016-11-18] MEDS: RIVAROXABAN 10 MG TABLET PO SCH (21:30)
[2016-11-18] MEDS: ZOLPIDEM TARTRATE 5 MG TABLET PO SCH (23:58)
[2016-11-19] MEDS: LOSARTAN POTASSIUM 50 MG TABLET PO SCH ×2 (00:20→09:35)
[2016-11-19] MEDS: MORPHINE SULFATE 10 MG/ML INJ IV PRN ×6 (00:25→23:11)
[2016-11-19] MEDS: RINGERS SOLUTION,LACTATED 1,000 ML IV PRN ×3 (00:26→16:03)
[2016-11-19] MEDS: IBUPROFEN 800 MG in NORMAL SALINE 250 ML IV SCH ×2 (02:04→09:35)
[2016-11-19] MEDS: LANSOPRAZOLE 30 MG TAB.RAP.DR PO SCH (05:22)
[2016-11-19 05:33] LABS: HEMATOCRIT 25.3 % (36.0-47.0); HEMOGLOBIN 8.3 g/dL (12.0-15.5); HGB HCT DIFFERENCE -0.4; MEAN CORPUSCULAR HEMOGLOBIN 26.4 pg (27.0-33.4); MEAN CORPUSCULAR HGB CONC 32.8 g/dL (32.0-36.0); MEAN CORPUSCULAR VOLUME 81 fl (80-97); RED BLOOD COUNT 3.15 10^6/uL (3.72-5.28); RED CELL DISTRIBUTION WIDTH 16.8 % (11.5-14.0); WHITE BLOOD COUNT 8.1 10^3/uL (4.0-10.5)
--- NOTE | 2016-11-19 07:13 | PDOC PROGRESS REPORT ---
Subjective Progress Note for:: 11/19/16 Subjective:: Patient alert and translation through her daughter who is present in the room overnight Physical Exam Vital Signs: Temp Pulse Resp BP Pulse Ox 37.1 C 72 16 107/41 L 100 11/19/16 03:58 11/19/16 03:58 11/19/16 03:58 11/19/16 03:58 11/19/16 03:58 Pulse Oximeter Continuous Start: 11/18/16 09: 25 Freq: RTQ4 Status: Cancelled Document 11/18/16 08:15 TPO (Rec: 11/18/16 09:26 TPO [email or web address]) Pulse Oximetry Assessment Oxygen Saturation (92-100) 96 Oxygen Flow Rate (L/min) 5 Oxygen Delivery Method Nasal Cannula Fraction of Inspired Oxygen (FIO2) 40 Equipment Usage Initial Set Up Continuous Pulse Oximeter 24 Hour Charge Charge Now Continuous SpO2 Machine # N-2 Intake & Output 11/18/16 11/19/16 11/20/16 06:59 06:59 06:59 Intake Total 6016 2710 Output Total 3750 1850 Balance 2266 860 General appearance: PRESENT: no acute distress Head exam: PRESENT: normocephalic Respiratory exam: PRESENT: unlabored Cardiovascular exam: PRESENT: RRR Pulses: PRESENT: +1 pedal pulses bilateral Vascular exam: PRESENT: normal capillary refill GI/Abdominal exam: PRESENT: soft Rectal exam: PRESENT: deferred Extremities exam: PRESENT: other - Right hip picot dressing with a small to moderate amount of drainage proximally. This is changed. Wound is well approximated. Thanks are equal. Distal neurovascular examination is intact. Neurological exam: PRESENT: alert, awake, oriented to person, oriented to place , oriented to time, oriented to situation. ABSENT: motor sensory deficit Psychiatric exam: PRESENT: appropriate affect, normal mood. ABSENT: homicidal ideation, suicidal ideation Skin exam: PRESENT: dry, intact, warm. ABSENT: cyanosis, rash Results Laboratory Results: 11/19/16 05:19 11/18/16 06:44 11/18/16 11/18/16 11/19/16 06:44 06:44 05:19 WBC 7.2 8.1 RBC 3.35 L 3.15 L Hgb 8.7 L 8.3 L Hct 26.7 L 25.3 L MCV 80 81 MCH 26.1 L 26.4 L MCHC 32.7 32.8 RDW 16.8 H 16.8 H Plt Count 189 184 Sodium 136.9 L Potassium 3.7 Chloride 105 Carbon Dioxide 25 Anion Gap 7 BUN 15 Creatinine 0.72 Est GFR ( Amer) > 60 Est GFR (Non-Af Amer) > 60 Glucose 105 Calcium 8.6 Impressions: Chest X-Ray 11/06/16 15:42 IMPRESSION: No acute findings Pelvis X-Ray 11/17/16 13:24 IMPRESSION: In the views submitted the acetabular component of the prosthesis appears medially rotated. Status: Imported from PACS Assessment & Plan - Diagnosis (1) Arthritis of right hip Is this a current diagnosis for this admission?: YesPlan: 1-year-old white female status post right hip arthroplasty with limited progress with physical therapy yesterday. - Time Time Spent with patient: 15-24 minutes Anticipated discharge: Home with Homehealth Within: within 24 hours
[2016-11-19] MEDS: ANASTROZOLE 1 MG TABLET PO SCH (08:23)
[2016-11-19] MEDS: OXYCODONE HCL SR 10 MG TABLET PO SCH (09:35)
[2016-11-19] MEDS: PREGABALIN 75 MG CAPSULE PO SCH (09:35)
[2016-11-19] MEDS: IRON POLYSACCHARIDES COMPLEX 150 MG CAPSULE PO SCH ×2 (10:45→17:42)
[2016-11-19] MEDS: SENNOSIDES/DOCUSATE 8.6-50 MG 1 EACH TABLET PO SCH ×2 (10:45→17:42)
[2016-11-19] MEDS: PRENATAL VITAMIN W-O CA NO5/FE FUMARATE/FA CAPSULE PO SCH (10:45)
[2016-11-19] MEDS: MAGNESIUM OXIDE 400 MG TABLET PO SCH (17:42)
[2016-11-19] MEDS: RIVAROXABAN 10 MG TABLET PO SCH (23:07)
[2016-11-20] MEDS: ZOLPIDEM TARTRATE 5 MG TABLET PO SCH (00:19)
[2016-11-20] MEDS: PREGABALIN 75 MG CAPSULE PO SCH ×2 (00:19→09:11)
[2016-11-20] MEDS: LOSARTAN POTASSIUM 50 MG TABLET PO SCH ×2 (02:21→09:11)
[2016-11-20] MEDS: MORPHINE SULFATE 10 MG/ML INJ IV PRN ×2 (06:22→08:46)
[2016-11-20] MEDS: LANSOPRAZOLE 30 MG TAB.RAP.DR PO SCH (06:22)
[2016-11-20 06:34] LABS: HEMATOCRIT 23.7 % (36.0-47.0); HGB HCT DIFFERENCE -0.6; MEAN CORPUSCULAR HEMOGLOBIN 25.9 pg (27.0-33.4); MEAN CORPUSCULAR HGB CONC 32.4 g/dL (32.0-36.0); MEAN CORPUSCULAR VOLUME 80 fl (80-97); RED BLOOD COUNT 2.97 10^6/uL (3.72-5.28); RED CELL DISTRIBUTION WIDTH 16.9 % (11.5-14.0)
[2016-11-20 06:38] LABS: HEMOGLOBIN 7.7 g/dL (12.0-15.5)
--- NOTE | 2016-11-20 07:15 | PDOC DISCHARGE SUMMARY ---
General - Admit/Disc Date/PCP Admission Date/Primary Care Provider: 11/17/16 10:35 HEATHER COHN, Discharge Date: 11/20/16 - Discharge Diagnosis (1) Arthritis of right hip Is this a current diagnosis for this admission?: Yes (2) Postoperative anemia due to acute blood loss Is this a current diagnosis for this admission?: Yes - Additional Information Resuscitation Status: Full Code Discharge Diet: As Tolerated, Regular Discharge Activity: Balance Activity w/Rest, No Driving, No tub bath Home Medications: Losartan Potassium 50 mg PO BID 02/04/16 Meloxicam 15 mg PO DAILY 02/04/16 Anastrozole 1 mg PO QAM 11/11/16 Hydrocodone Bit/Acetaminophen [Hydrocodon-Acetaminophen 5-325] 1 each PO Q8 PRN 11/11/16 Iron Polysaccharide Complex [Ferrex 150] 150 mg PO BID 11/11/16 Magnesium Oxide 400 mg PO QPM 11/11/16 Zolpidem Tartrate 10 mg PO QHS 11/11/16 Oxycodone HCl [Oxy-Ir 5 mg Tablet] 5 mg PO Q6HP PRN #0 tablet 11/20/16 Rivaroxaban [Xarelto 10 mg Tablet] 10 mg PO QHS #0 tablet 11/20/16 History of Present Illness History of Present Illness: CLAUDIA MAY is a 70 year old female right hip pain and functional disability secondary to osteoarthritis the patient. The patient is admitted for elective right hip arthroplasty Hospital Course Hospital Course: Admitted through the operating room where she undergoes an uncomplicated right hip arthroplasty. She is returned turned to the floor in satisfactory condition. She makes slow steady progress with physical therapy ultimately ambulating 150 feet on postop day #2. Laboratory values on postop day #2 include a hematocrit of 23.9%. This is discussed with the patient and she declines transfusion at this time. Physical Exam Vital Signs: Temp Pulse Resp BP Pulse Ox 37.4 C 77 17 122/51 L 100 11/20/16 00:07 11/20/16 00:07 11/20/16 00:07 11/20/16 00:07 11/20/16 00:07 Pulse Oximeter Continuous Start: 11/18/16 09: 25 Freq: RTQ4 Status: Cancelled Document 11/18/16 08:15 TPO (Rec: 11/18/16 09:26 TPO [email or web address]) Pulse Oximetry Assessment Oxygen Saturation (92-100) 96 Oxygen Flow Rate (L/min) 5 Oxygen Delivery Method Nasal Cannula Fraction of Inspired Oxygen (FIO2) 40 Equipment Usage Initial Set Up Continuous Pulse Oximeter 24 Hour Charge Charge Now Continuous SpO2 Machine # N-2 Intake & Output 11/19/16 11/20/16 11/21/16 06:59 06:59 06:59 Intake Total 2710 2249 Output Total 1850 Balance 860 2249 General appearance: PRESENT: no acute distress Head exam: PRESENT: normocephalic Eye exam: PRESENT: EOMI Respiratory exam: PRESENT: unlabored Cardiovascular exam: PRESENT: RRR Pulses: PRESENT: +1 pedal pulses bilateral Vascular exam: PRESENT: normal capillary refill GI/Abdominal exam: PRESENT: soft Rectal exam: PRESENT: deferred Extremities exam: PRESENT: other - Right hip picot dressing clean dry and intact Neurological exam: PRESENT: alert, awake, oriented to person, oriented to place , oriented to time, oriented to situation. ABSENT: motor sensory deficit Psychiatric exam: PRESENT: appropriate affect, normal mood. ABSENT: homicidal ideation, suicidal ideation Skin exam: PRESENT: dry, intact, warm. ABSENT: cyanosis, rash Results Laboratory Results: 11/20/16 05:59 11/18/16 06:44 11/20/16 05:59 WBC 8.0 RBC 2.97 L Hgb 7.7 L Hct 23.7 L MCV 80 MCH 25.9 L MCHC 32.4 RDW 16.9 H Plt Count 185 Impressions: Chest X-Ray 11/06/16 15:42 IMPRESSION: No acute findings Pelvis X-Ray 11/17/16 13:24 IMPRESSION: In the views submitted the acetabular component of the prosthesis appears medially rotated. Status: Imported from PACS Plan Discharge Plan: We discharged home with home health nursing, home health physical therapy, wheeled walker, bedside commode. Follow-up will be with Dr. Simmons in the [facility] for surgery in 2 weeks. Visiting nurse service can change the right hip picot dressing on postop day #7 and replaced with an OpSite.
[2016-11-20] MEDS: ANASTROZOLE 1 MG TABLET PO SCH (08:45)
[2016-11-20] MEDS: SENNOSIDES/DOCUSATE 8.6-50 MG 1 EACH TABLET PO SCH (09:13)
[2016-11-20] MEDS: PRENATAL VITAMIN W-O CA NO5/FE FUMARATE/FA CAPSULE PO SCH (09:13)
[2016-11-20] MEDS: IRON POLYSACCHARIDES COMPLEX 150 MG CAPSULE PO SCH (09:14)
[2016-11-20 12:54] VITALS: BP 124/51
== END 2016-11-20 14:22 | disposition home health service (06) | DRG 470 ==
LOC: INOR 10:35 → 4S 14:37
PROVIDERS: ADMIT Orthopaedic Surgery; ATTEND Orthopaedic Surgery
PROC: 0SR902A Replacement of Right Hip Joint with Metal on Polyethylene Synthetic Substitute, Uncemented, Open Approach (ICD-10-PCS; principal; 2016-11-17 12:30)
DX: M16.11 Unilateral primary osteoarthritis, right hip (principal); D62 Acute posthemorrhagic anemia; I10 Essential (primary) hypertension; Z90.710 Acquired absence of both cervix and uterus; Z79.899 Other long term (current) drug therapy; Z90.10 Acquired absence of unspecified breast and nipple; Z82.49 Family history of ischemic heart disease and other diseases of the circulatory system
CPT/HCPCS: 01214; 36415; 71020; 72170; 80048; 81001; 85027; 86850; 86900; 86901; 88305; 88311; 93005; 93010; 94762; 94799; C1713; C9290; J0690; J1741; J2250; J2270; J2704; J3370; J3490; J7050; J7060; J7120; S0119

== ENCOUNTER 2017-01-21 08:29 | Inpatient (IN) | payer BC ==
--- NOTE | 2017-01-16 11:16 | RADIOLOGY REPORT (SQ) ---
EXAM DESCRIPTION: CHEST PA/LATERAL COMPLETED DATE/TIME: 01/16/2017 11:04 am REASON FOR STUDY: PRE OP COMPARISON: 11/06/2016 EXAM PARAMETERS: NUMBER OF VIEWS: two views TECHNIQUE: Digital Frontal and Lateral radiographic views of the chest acquired. RADIATION DOSE: NA LIMITATIONS: none FINDINGS: LUNGS AND PLEURA: No opacities, masses or pneumothorax. No pleural effusion. MEDIASTINUM AND HILAR STRUCTURES: No masses or contour abnormalities. HEART AND VASCULAR STRUCTURES: Heart normal size. No evidence for failure. BONES: No acute findings. HARDWARE: Injection port on the left. Surgical clips on right. OTHER: No other significant finding. IMPRESSION: NO SIGNIFICANT RADIOGRAPHIC FINDING IN THE CHEST. TECHNICAL DOCUMENTATION: JOB ID: [id number] [employer]- All Rights Reserved
[2017-01-16 11:41] LABS: APPEARANCE,URINE CLEAR; BILIRUBIN,URINE NEGATIVE (NEGATIVE); GLUCOSE, URINE NEGATIVE (NEGATIVE); KETONES,URINE NEGATIVE (NEGATIVE); LEUKOCYTE ESTERASE,URINE NEGATIVE (NEGATIVE); NITRITE,URINE NEGATIVE (NEGATIVE); PROTEIN,URINE NEGATIVE (NEGATIVE); URINE SPECIFIC GRAVITY 1.006; UROBILINOGEN,URINE NEGATIVE mg/dL (<2.0)
[2017-01-16 11:42] LABS: ABSOLUTE BASOPHILS # (AUTO) 0.1 10^3/uL (0.0-0.2); ABSOLUTE EOSINOPHILS # (AUTO) 0.2 10^3/uL (0.0-0.6); ABSOLUTE LYMPHOCYTES (AUTO) 1.5 10^3/uL (0.5-4.7); ABSOLUTE MONOCYTES (AUTO) 0.4 10^3/uL (0.1-1.4); ABSOLUTE NEUT (AUTO) 4.6 10^3/uL (1.7-8.2); BASOPHILS % (AUTO) 1.2 % (0-2); EOSINOPHILS % (AUTO) 2.3 % (0-6); HEMATOCRIT 33.7 % (36.0-47.0); HEMOGLOBIN 11.1 g/dL (12.0-15.5); HGB HCT DIFFERENCE -0.4; LYMPHOCYTES % (AUTO) 22.7 % (13-45); MEAN CORPUSCULAR HEMOGLOBIN 26.7 pg (27.0-33.4); MEAN CORPUSCULAR VOLUME 81 fl (80-97); MONOCYTES % (AUTO) 5.7 % (3-13); RED BLOOD COUNT 4.17 10^6/uL (3.72-5.28); RED CELL DISTRIBUTION WIDTH 16.4 % (11.5-14.0); SEGMENTED NEUTROPHILS % (AUTO) 68.1 % (42-78); WHITE BLOOD COUNT 6.8 10^3/uL (4.0-10.5)
[2017-01-16 12:06] LABS: ANION GAP 13 (5-19); BLOOD UREA NITROGEN 19 mg/dL (7-20); CALCIUM 10.6 mg/dL (8.4-10.2); CARBON DIOXIDE 28 mmol/L (22-30); CHLORIDE 102 mmol/L (98-107); CREATININE RESULT 0.73 mg/dL (0.52-1.25); GLUCOSE 95 mg/dL (75-110); POTASSIUM 4.7 mmol/L (3.6-5.0)
--- NOTE | 2017-01-16 23:54 | EKG REPORT ---
SEVERITY:- ABNORMAL ECG - SINUS RHYTHM LEFT AXIS DEVIATION PROBABLE LEFT VENTRICULAR HYPERTROPHY : Confirmed by: Myles Crystal 16-Jan-2017 23:54:18
[~2017-01-21 08:29] MED LIST changes: +BUPIVACAINE INJ/PF LIPOSOME/PF 266 MG/20 ML SDV IJ PRN; -CEFAZOLIN INJ 1 GM VIAL INJ PRN; -IBUPROFEN 800 MG in NORMAL SALINE 250 ML IV PRN; +IBUPROFEN 800 MG/NS 250 ML IV PRN; +LACTATED RINGERS 1000 ML IV PRN; +LIDOCAINE 0.5% INJ-PF (5 MG/ML) 50 ML SDV SUBCUT PRN
[2017-01-21] MEDS ORDERED: THROMBIN (BOVINE) TOPICAL 20000 UNIT VIAL ONE (09:26)
[2017-01-21] MEDS ORDERED: BUPIVACAINE INJ/PF LIPOSOME/PF 266 MG/20 ML SDV ONE (09:27)
[2017-01-21] MEDS ORDERED: THROMBIN (BOVINE) 5000 UNIT EPITAXIS KIT ONE (09:27)
[2017-01-21] MEDS: CEFAZOLIN INJ 1 GM VIAL IV PRN ×2 (09:35→17:47)
[2017-01-21] MEDS ORDERED: MIDAZOLAM 2 MG/2 ML INJ ONE (10:57)
[2017-01-21] MEDS ORDERED: PROPOFOL INJ 200 MG/20 ML VIAL IV ONE (10:58)
[2017-01-21] MEDS ORDERED: TRANEXAMIC ACID INJ/PF 1,000 MG/10 ML SDV IV ONE ×2 (10:58→14:00)
[2017-01-21] MEDS ORDERED: DIPHENHYDRAMINE HCL 50 MG/ML VIAL IV PRN ×2 (12:20→12:32)
[2017-01-21] MEDS ORDERED: OXYCODONE-ACETAMINOPHEN 5-325 MG TABLET PO PRN ×2 (12:20)
[2017-01-21] MEDS ORDERED: MORPHINE SULFATE 10 MG/ML INJ IV PRN ×3 (12:20→12:32)
[2017-01-21] MEDS ORDERED: PROMETHAZINE HCL INJ 25 MG/1 ML VIAL IV PRN ×2 (12:20)
[2017-01-21] MEDS ORDERED: MEPERIDINE HCL/PF INJ 25 MG/1 ML DISP.SYRIN IV PRN (12:20)
[2017-01-21] MEDS ORDERED: FENTANYL CITRATE INJ/PF 100 MCG/2 ML AMPUL IV PRN ×3 (12:20)
[2017-01-21] MEDS ORDERED: ALPRAZOLAM 0.25 MG TABLET PO PRN (12:31)
--- NOTE | 2017-01-21 12:31 | Operative Report ---
Operative Report DATE OF SURGERY: 01/21/17 PREOPERATIVE DIAGNOSIS: Failed right acetabular component OPERATION: Right acetabular revision. Right sciatic neuro lysis. SURGEON: ANTONINA BAIRD ANESTHESIA: Spinal TISSUE REMOVED OR ALTERED: Cultures to microbiology. Implants to the patient ESTIMATED BLOOD LOSS: 150 PROCEDURE: With the patient in a left lateral decubitus position on the operative table the right lower extremity hindquarter prepped and draped in a sterile fashion. Curvilinear incision was made over the greater trochanter and a posterior approach the hip was taken as previously. Upon entering the hip capsule cultures are taken for culture and sensitivity. Sciatic nerve is identified coming out of the sciatic notch and is traced to the gluteal sling. Is protected throughout its extent for the rest of the case. The hip is dislocated and the femoral head disimpacted from the trunnion. The femur was retracted anteriorly and the underlying acetabulum was clearly visualized. Soft tissue cleared off the room of this. It is fairly solid at this point. The underlying polyethylene liner was removed followed by the screw and acetabular knives and then used to remove the malpositioned acetabulum. This is a 48 mm PSL cup. This has an expanded rim to approximately 49-1/2 mm. A 48 reamer is then used to deepen the acetabulum. A trial reduction performed with a 50 mm trial and this feels loose. Decision was made to upsize the acetabulum. A 50 mm reamer was then used to shape the acetabulum with 52 mm [place] multihole titanium cup was then impacted into position secured with 3 screws. A 36 mm liner was then impacted. A trial reduction was performed with 36 mm head standard neck extension. This provides adequate soft tissue tension and excellent stability. The hip was dislocated and the trial head removed. The final chrome cobalt head is impacted onto the trunnion. The wound is copiously with pulse lavage. A subsequent closed in layers interrupted Vicryl followed by billy. Sterile compressive dressings applied and the patient's return to the PACU in satisfactory vision.
[2017-01-21] MEDS ORDERED: MAG HYDROX/AL HYDROX/SIMETH SUSP 30 ML UDCUP PO PRN (12:32)
[2017-01-21] MEDS ORDERED: MORPHINE SULFATE 10 MG/ML INJ IM PRN (12:32)
[2017-01-21] MEDS ORDERED: ACETAMINOPHEN 325 MG TABLET PO PRN (12:32)
[2017-01-21] MEDS ORDERED: RINGERS SOLUTION,LACTATED 1,000 ML IV PRN (12:32)
[2017-01-21] MEDS ORDERED: ONDANSETRON HCL INJ/PF 4 MG/2 ML SDV IV PRN (12:32)
[2017-01-21] MEDS ORDERED: IBUPROFEN INJ 800 MG/8 ML VIAL IV ONE (13:07)
[2017-01-21] MEDS ORDERED: GABAPENTIN 100 MG CAPSULE PO SCH (14:00)
[2017-01-21] MEDS ORDERED: LIDOCAINE 2% INJ-PF (20 MG/ML) 10 ML AMPUL ONE (14:11)
--- NOTE | 2017-01-21 14:18 | RADIOLOGY REPORT (SQ) ---
EXAM DESCRIPTION: PELVIS AP COMPLETED DATE/TIME: 01/21/2017 1:46 pm REASON FOR STUDY: Post Op Long Cassette in PACU T84.090D [facility] COMPL OF INTERNAL RIGHT HIP PROSTHES IS, SUBS E COMPARISON: 11/17/2016 NUMBER OF VIEWS: Two views TECHNIQUE: Digital radiographic images of the pelvis post-procedure LIMITATIONS: None. FINDINGS: BONES: No worrisome or unexpected findings post-procedure. DEVICE: Right hip arthroplasty SOFT TISSUES: No worrisome findings. Expected postoperative changes. IMPRESSION: Postoperative changes, right hip arthroplasty. TECHNICAL DOCUMENTATION: JOB ID: [id number] [employer]- All Rights Reserved
[2017-01-21] MEDS: MORPHINE SULFATE 10 MG/ML INJ IV PRN (17:01)
[2017-01-21] MEDS: GABAPENTIN 100 MG CAPSULE PO SCH ×2 (17:07→21:22)
[2017-01-21] MEDS: IRON POLYSACCHARIDES COMPLEX 150 MG CAPSULE PO SCH (17:46)
[2017-01-21] MEDS: SENNOSIDES/DOCUSATE 8.6-50 MG 1 EACH TABLET PO SCH (17:46)
[2017-01-21] MEDS: MAGNESIUM OXIDE 400 MG TABLET PO SCH (17:46)
[2017-01-21] MEDS: IBUPROFEN 800 MG in NORMAL SALINE 250 ML IV SCH (17:46)
[2017-01-21] MEDS: CALCIUM CARBONATE 250 MG/VITAMIN D3 125 UNIT TABLET PO SCH (17:46)
[2017-01-21] MEDS ORDERED: (PENDING PHARMACY ID) (Calcium Carb & Citrate/Vit D3 [Calcium + D3 Er Tablet] 1 EACH) PO SCH (18:00)
[2017-01-21] MEDS ORDERED: LOSARTAN POTASSIUM 50 MG TABLET PO SCH (18:00)
[2017-01-21] MEDS ORDERED: ANASTROZOLE 1 MG TABLET PO ONE (21:00)
[2017-01-21] MEDS: RIVAROXABAN 10 MG TABLET PO SCH (21:22)
[2017-01-21] MEDS: MIRTAZAPINE 15 MG TABLET PO SCH (21:23)
[2017-01-21] MEDS: LOSARTAN POTASSIUM 50 MG TABLET PO SCH (21:23)
[2017-01-21] MEDS: OXYCODONE HCL SR 10 MG TABLET PO SCH (21:23)
[2017-01-21] MEDS: ZOLPIDEM TARTRATE 5 MG TABLET PO PRN (21:26)
[2017-01-21] MEDS: ONDANSETRON 4 MG TAB.RAPDIS PO PRN (21:27)
[2017-01-21] MEDS ORDERED: (PENDING PHARMACY ID) (Zolpidem Tartrate [Zolpidem Tartrate] 10 MG) PO SCH (22:00)
[2017-01-21] MEDS ORDERED: ZOLPIDEM TARTRATE 5 MG TABLET PO SCH (22:00)
[2017-01-22] MEDS ORDERED: VANCOMYCIN HCL 1,000 MG in DEXTROSE 5%-WATER 250 ML IV ONE (00:32)
[2017-01-22] MEDS: IBUPROFEN 800 MG in NORMAL SALINE 250 ML IV SCH ×3 (02:33→17:03)
[2017-01-22] MEDS: LANSOPRAZOLE 30 MG TAB.RAP.DR PO SCH (05:30)
[2017-01-22] MEDS: GABAPENTIN 100 MG CAPSULE PO SCH ×3 (05:30→21:44)
[2017-01-22] MEDS: ONDANSETRON 4 MG TAB.RAPDIS PO PRN (05:33)
[2017-01-22] MEDS: OXYCODONE HCL IR 5 MG TABLET PO PRN (05:33)
[2017-01-22 05:49] LABS: HEMATOCRIT 26.7 % (36.0-47.0); HEMOGLOBIN 8.7 g/dL (12.0-15.5); HGB HCT DIFFERENCE -0.6; MEAN CORPUSCULAR HEMOGLOBIN 26.6 pg (27.0-33.4); MEAN CORPUSCULAR HGB CONC 32.5 g/dL (32.0-36.0); MEAN CORPUSCULAR VOLUME 82 fl (80-97); RED BLOOD COUNT 3.27 10^6/uL (3.72-5.28); RED CELL DISTRIBUTION WIDTH 16.5 % (11.5-14.0); WHITE BLOOD COUNT 6.9 10^3/uL (4.0-10.5)
[2017-01-22 06:15] LABS: ANION GAP 8 (5-19); BLOOD UREA NITROGEN 16 mg/dL (7-20); CARBON DIOXIDE 26 mmol/L (22-30); CHLORIDE 105 mmol/L (98-107); CREATININE RESULT 0.71 mg/dL (0.52-1.25); GLUCOSE 100 mg/dL (75-110); POTASSIUM 3.8 mmol/L (3.6-5.0)
--- NOTE | 2017-01-22 06:27 | PDOC PROGRESS REPORT ---
Subjective Progress Note for:: 01/22/17 Subjective:: Patient states that she is much more comfortable than last time Physical Exam Vital Signs: Temp Pulse Resp BP Pulse Ox 36.5 C 69 16 119/63 99 01/22/17 04:00 01/22/17 04:00 01/22/17 04:00 01/22/17 04:00 01/21/17 17:55 Intake & Output 01/20/17 01/21/17 01/22/17 06:59 06:59 06:59 Intake Total 5500 Output Total 3160 Balance 2340 General appearance: PRESENT: no acute distress Head exam: PRESENT: normocephalic Respiratory exam: PRESENT: unlabored Cardiovascular exam: PRESENT: RRR Pulses: PRESENT: +1 pedal pulses bilateral Vascular exam: PRESENT: normal capillary refill GI/Abdominal exam: PRESENT: soft Rectal exam: PRESENT: deferred Extremities exam: PRESENT: other - Right hip dressing clean dry and intact. Leg lengths are equal. Distal neurovascular examination is intact. Neurological exam: PRESENT: alert, awake, oriented to person, oriented to place , oriented to time, oriented to situation. ABSENT: motor sensory deficit Psychiatric exam: PRESENT: appropriate affect, normal mood. ABSENT: homicidal ideation, suicidal ideation Skin exam: PRESENT: dry, intact, warm. ABSENT: cyanosis, rash Results Laboratory Results: 01/22/17 05:18 01/22/17 05:18 01/21/17 01/21/17 01/21/17 08:56 09:27 09:27 WBC RBC Hgb Hct MCV MCH MCHC RDW Plt Count Sodium Potassium 3.8 Chloride Carbon Dioxide Anion Gap BUN Creatinine Est GFR ( Amer) Est GFR (Non-Af Amer) Glucose Calcium Blood Type Cancelled O POSITIVE Antibody Screen Cancelled NEGATIVE 01/22/17 01/22/17 05:18 05:18 WBC 6.9 RBC 3.27 L Hgb 8.7 L Hct 26.7 L MCV 82 MCH 26.6 L MCHC 32.5 RDW 16.5 H Plt Count 238 Sodium 139.0 Potassium 3.8 Chloride 105 Carbon Dioxide 26 Anion Gap 8 BUN 16 Creatinine 0.71 Est GFR ( Amer) > 60 Est GFR (Non-Af Amer) > 60 Glucose 100 Calcium 9.0 Blood Type Antibody Screen Impressions: Chest X-Ray 01/16/17 10:46 IMPRESSION: NO SIGNIFICANT RADIOGRAPHIC FINDING IN THE CHEST. Pelvis X-Ray 01/21/17 12:33 IMPRESSION: Postoperative changes, right hip arthroplasty. Status: Imported from PACS Assessment & Plan - Diagnosis (1) Mechanical complication associated with orthopedic device Is this a current diagnosis for this admission?: Yes Plan: 71-year-old female postop day 1 status post right hip revision arthroplasty. Patient is doing well. Hematocrit remains above 26%. Patient making progress with physical therapy. - Time Time Spent with patient: 15-24 minutes Anticipated discharge: Home with Homehealth Within: within 24 hours
[2017-01-22] MEDS: MORPHINE SULFATE 10 MG/ML INJ IV PRN (08:06)
[2017-01-22] MEDS: OXYCODONE HCL SR 10 MG TABLET PO SCH ×2 (10:07→21:44)
[2017-01-22] MEDS: POTASSIUM CHLORIDE 10 MEQ TABLET.SA PO SCH (10:07)
[2017-01-22] MEDS: CALCIUM CARBONATE 250 MG/VITAMIN D3 125 UNIT TABLET PO SCH ×2 (10:09→17:02)
[2017-01-22] MEDS: PRENATAL VITAMIN W-O CA NO5/FE FUMARATE/FA CAPSULE PO SCH (10:09)
[2017-01-22] MEDS: IRON POLYSACCHARIDES COMPLEX 150 MG CAPSULE PO SCH ×2 (10:10→17:02)
[2017-01-22] MEDS: SENNOSIDES/DOCUSATE 8.6-50 MG 1 EACH TABLET PO SCH ×2 (10:10→17:02)
[2017-01-22] MEDS: LOSARTAN POTASSIUM 50 MG TABLET PO SCH ×2 (10:24→21:44)
[2017-01-22] MEDS: ANASTROZOLE 1 MG TABLET PO SCH (10:32)
[2017-01-22] MEDS: MAGNESIUM OXIDE 400 MG TABLET PO SCH (17:02)
[2017-01-22] MEDS: RIVAROXABAN 10 MG TABLET PO SCH (21:44)
[2017-01-22] MEDS: MIRTAZAPINE 15 MG TABLET PO SCH (21:44)
[2017-01-22] MEDS: ZOLPIDEM TARTRATE 5 MG TABLET PO PRN (21:45)
[2017-01-23] MEDS: IBUPROFEN 800 MG in NORMAL SALINE 250 ML IV SCH ×2 (02:56→11:04)
[2017-01-23 05:21] LABS: HEMATOCRIT 24.6 % (36.0-47.0); HEMOGLOBIN 8.3 g/dL (12.0-15.5); HGB HCT DIFFERENCE 0.3; MEAN CORPUSCULAR HEMOGLOBIN 27.5 pg (27.0-33.4); MEAN CORPUSCULAR HGB CONC 33.8 g/dL (32.0-36.0); MEAN CORPUSCULAR VOLUME 81 fl (80-97); RED BLOOD COUNT 3.02 10^6/uL (3.72-5.28); RED CELL DISTRIBUTION WIDTH 16.8 % (11.5-14.0); WHITE BLOOD COUNT 8.5 10^3/uL (4.0-10.5)
[2017-01-23] MEDS: GABAPENTIN 100 MG CAPSULE PO SCH (05:21)
[2017-01-23] MEDS: LANSOPRAZOLE 30 MG TAB.RAP.DR PO SCH (05:22)
--- NOTE | 2017-01-23 07:06 | PDOC DISCHARGE SUMMARY ---
General - Admit/Disc Date/PCP Admission Date/Primary Care Provider: 01/21/17 08:29 HEATHER COHN, Discharge Date: 01/23/17 - Discharge Diagnosis (1) Mechanical complication associated with orthopedic device Is this a current diagnosis for this admission?: Yes - Additional Information Discharge Diet: As Tolerated, Regular Discharge Activity: Activity As Tolerated, Balance Activity w/Rest, No Driving, No tub bath Home Medications: Losartan Potassium 50 mg PO BID 02/04/16 Meloxicam 15 mg PO DAILY 02/04/16 Magnesium Oxide 400 mg PO QPM 11/11/16 Zolpidem Tartrate 10 mg PO QHS 11/11/16 Anastrozole 1 tab PO DAILY 01/16/17 Calcium Carb & Citrate/Vit D3 [Calcium + D3 ER Tablet] 1 each PO BID 01/16/17 Gabapentin 100 mg PO TID 01/16/17 Ibuprofen 800 mg PO TID 01/16/17 Iron Polysaccharide Complex [Ferrex 150] 150 mg PO BID 01/16/17 Mirtazapine 15 mg PO QHS 01/16/17 Potassium Chloride 20 meq PO DAILY 01/16/17 Alprazolam 0.25 mg PO TID PRN 01/21/17 Oxycodone HCl [Oxy-Ir 5 mg Tablet] 5 mg PO Q6HP PRN tablet 01/23/17 Rivaroxaban [Xarelto 10 mg Tablet] 10 mg PO QHS tablet 01/23/17 History of Present Illness History of Present Illness: CLAUDIA MAY is a 71 year old female who underwent a right hip arthroplasty subsequently had an acetabular component shift. She is now admitted for an acetabular revision. Hospital Course Hospital Course: Patient is admitted through the operating where she undergoes an uncomplicated right revision arthroplasty. She is returned to the floor in satisfactory condition begun on a physical therapy program for weightbearing as tolerated ambulation. Physical Exam Vital Signs: Temp Pulse Resp BP Pulse Ox 36.6 C 74 16 104/47 L 99 01/23/17 00:10 01/23/17 00:10 01/23/17 00:10 01/23/17 00:10 01/22/17 11:48 Intake & Output 01/22/17 01/23/17 01/24/17 06:59 06:59 06:59 Intake Total 5500 2600 Output Total 3160 Balance 2340 2600 General appearance: PRESENT: no acute distress Head exam: PRESENT: normocephalic Eye exam: PRESENT: EOMI Respiratory exam: PRESENT: unlabored Cardiovascular exam: PRESENT: RRR Pulses: PRESENT: +1 pedal pulses bilateral Vascular exam: PRESENT: normal capillary refill GI/Abdominal exam: PRESENT: soft Rectal exam: PRESENT: deferred Extremities exam: PRESENT: other - Right hip picot dressing is clean dry and intact. Leg lengths are equal. Minimal pedal edema. Distal neurovascular examination is intact. Neurological exam: PRESENT: alert, awake, oriented to person, oriented to place , oriented to time, oriented to situation. ABSENT: motor sensory deficit Psychiatric exam: PRESENT: appropriate affect, normal mood. ABSENT: homicidal ideation, suicidal ideation Skin exam: PRESENT: dry, intact, warm. ABSENT: cyanosis, rash Results Laboratory Results: 01/23/17 04:34 01/22/17 05:18 01/23/17 04:34 WBC 8.5 RBC 3.02 L Hgb 8.3 L Hct 24.6 L MCV 81 MCH 27.5 MCHC 33.8 RDW 16.8 H Plt Count 238 Impressions: Chest X-Ray 01/16/17 10:46 IMPRESSION: NO SIGNIFICANT RADIOGRAPHIC FINDING IN THE CHEST. Pelvis X-Ray 01/21/17 12:33 IMPRESSION: Postoperative changes, right hip arthroplasty. Status: Imported from PACS Plan Discharge Plan: Patient to be discharged home with home health physical therapy home health nursing,. Dorcas has a wheeled walker and bedside commode. Visiting nurse service to change right hip picot dressing on postop day 7. Replaced with an OpSite. Follow-up with Dr. Simmons and [facility] for surgery in 2 weeks for staple removal.
[2017-01-23] MEDS: OXYCODONE HCL IR 5 MG TABLET PO PRN (07:51)
[2017-01-23] MEDS: SENNOSIDES/DOCUSATE 8.6-50 MG 1 EACH TABLET PO SCH (11:07)
[2017-01-23] MEDS: CALCIUM CARBONATE 250 MG/VITAMIN D3 125 UNIT TABLET PO SCH (11:07)
[2017-01-23] MEDS: POTASSIUM CHLORIDE 10 MEQ TABLET.SA PO SCH (11:08)
[2017-01-23] MEDS: IRON POLYSACCHARIDES COMPLEX 150 MG CAPSULE PO SCH (11:08)
[2017-01-23] MEDS: PRENATAL VITAMIN W-O CA NO5/FE FUMARATE/FA CAPSULE PO SCH (11:08)
[2017-01-23] MEDS: OXYCODONE HCL SR 10 MG TABLET PO SCH (11:08)
[2017-01-23] MEDS: LOSARTAN POTASSIUM 50 MG TABLET PO SCH (11:09)
[2017-01-23] MEDS: ANASTROZOLE 1 MG TABLET PO SCH (11:12)
[2017-01-23 12:06] VITALS: BP 123/61
== END 2017-01-23 12:31 | disposition home health service (06) | DRG 468 ==
LOC: INOR 08:29 → 4S 14:09
PROVIDERS: ADMIT Orthopaedic Surgery; ATTEND Orthopaedic Surgery
PROC: 0SP909Z Removal of Liner from Right Hip Joint, Open Approach (ICD-10-PCS; 2017-01-21)
PROC: 0SUA09Z Supplement Right Hip Joint, Acetabular Surface with Liner, Open Approach (ICD-10-PCS; 2017-01-21)
PROC: 0SPA0JZ Removal of Synthetic Substitute from Right Hip Joint, Acetabular Surface, Open Approach (ICD-10-PCS; 2017-01-21)
PROC: 01NB0ZZ Release Lumbar Nerve, Open Approach (ICD-10-PCS; 2017-01-21)
PROC: 0SRA01A Replacement of Right Hip Joint, Acetabular Surface with Metal Synthetic Substitute, Uncemented, Open Approach (ICD-10-PCS; principal; 2017-01-21 10:30)
DX: T84.090A Other mechanical complication of internal right hip prosthesis, initial encounter (principal); M81.0 Age-related osteoporosis without current pathological fracture; Z79.899 Other long term (current) drug therapy; Z90.710 Acquired absence of both cervix and uterus; Z82.49 Family history of ischemic heart disease and other diseases of the circulatory system
CPT/HCPCS: 01215; 36415; 71020; 72170; 80048; 81001; 84132; 85025; 85027; 86850; 86900; 86901; 87070; 87075; 87205; 93005; 93010; 94799; C1713; C9290; J0690; J1741; J2250; J2270; J2405; J2704; J3370; J3490; J7050; J7060; J7120; S0119

== ENCOUNTER → 2017-02-10 | Outpatient (CLI) | payer BC ==
--- NOTE | 2017-02-10 15:15 | RADIOLOGY REPORT (SQ) ---
EXAM DESCRIPTION: CHEST PA/LATERAL COMPLETED DATE/TIME: 02/10/2017 2:20 pm REASON FOR STUDY: SHORTNESS OF BREATH COMPARISON: 01/16/2017. EXAM PARAMETERS: NUMBER OF VIEWS: two views TECHNIQUE: Digital Frontal and Lateral radiographic views of the chest acquired. RADIATION DOSE: NA LIMITATIONS: none FINDINGS: LUNGS AND PLEURA: No opacities, masses or pneumothorax. No pleural effusion. MEDIASTINUM AND HILAR STRUCTURES: No masses or contour abnormalities. HEART AND VASCULAR STRUCTURES: Heart normal size. No evidence for failure. BONES: No acute findings. HARDWARE: Vascular access port. Surgical clips in the soft tissues. OTHER: No other significant finding. IMPRESSION: NO SIGNIFICANT RADIOGRAPHIC FINDING IN THE CHEST. TECHNICAL DOCUMENTATION: JOB ID: [id number] [employer]- All Rights Reserved
== END ==
LOC: OD 13:49
PROVIDERS: ATTEND Family Medicine
DX: R06.02 Shortness of breath (principal)
CPT/HCPCS: 71020

== ENCOUNTER → 2017-03-16 | Outpatient (CLI) | payer BC ==
--- NOTE | 2017-03-16 16:45 | RADIOLOGY REPORT (SQ) ---
EXAM DESCRIPTION: L SPINE WHOLE COMPLETED DATE/TIME: 03/16/2017 4:17 pm REASON FOR STUDY: LUMBAR RADICULOPATHY (M54.16 M54.12 RADICULOPATHY, CERVICAL REGION COMPARISON: None. NUMBER OF VIEWS: Five views including obliques. TECHNIQUE: AP, lateral, oblique, and sacral radiographic images acquired of the lumbar spine. LIMITATIONS: None. FINDINGS: MINERALIZATION: Osteopenia. SEGMENTATION: Normal. No transitional anatomy. ALIGNMENT: Mild convex left scoliosis. VERTEBRAE: Maintained height. No fracture or worrisome bone lesion. DISCS: Multilevel disc space narrowing with osteophytes. POSTERIOR ELEMENTS: Pedicles and facets are intact. No pars defect or posterior arch defects. Facet arthropathy is present. HARDWARE: None in the spine. PARASPINAL SOFT TISSUES: Normal. PELVIS: Intact as visualized. No fractures or worrisome bone lesions. SI joints intact. OTHER: Right hip arthroplasty. IMPRESSION: Spondylosis. Mild scoliosis. TECHNICAL DOCUMENTATION: JOB ID: [id number]- All Rights Reserved
--- NOTE | 2017-03-16 16:46 | RADIOLOGY REPORT (SQ) ---
EXAM DESCRIPTION: CERV SP 4 OR 5 VIEWS COMPLETED DATE/TIME: 03/16/2017 4:17 pm REASON FOR STUDY: CERVICAL RADICULOPATHY (M54.12) M54.12 RADICULOPATHY, CERVICAL REGION COMPARISON: None. NUMBER OF VIEWS: Five views including obliques. TECHNIQUE: AP, lateral, obliques and odontoid radiographic images acquired of the cervical spine. LIMITATIONS: None. FINDINGS: MINERALIZATION: Normal. SEGMENTATION: Normal. ALIGNMENT: Slight anterolisthesis of C6 relative to C5. VERTEBRAE: Maintained height. No fracture or worrisome bone lesion. DISCS: Multilevel disc space narrowing with osteophytes. POSTERIOR ELEMENTS: Pedicles and facets are intact. No posterior arch defects. Facet arthropathy is present. FORAMINA: Narrowed at the levels of maximal disc and facet disease. HARDWARE: None in the spine. PARASPINAL SOFT TISSUES: Normal. OTHER: No other significant finding. IMPRESSION: Cervical disc disease. Mild malalignment TECHNICAL DOCUMENTATION: JOB ID: [id number]- All Rights Reserved
== END ==
LOC: RAD 15:28
PROVIDERS: ATTEND Family Medicine
DX: M50.122 Cervical disc disorder at C5-C6 level with radiculopathy (principal); M54.16 Radiculopathy, lumbar region; M47.896 Other spondylosis, lumbar region
CPT/HCPCS: 72050; 72110

== ENCOUNTER → 2017-04-29 | Outpatient (CLI) | payer BC ==
--- NOTE | 2017-04-29 14:23 | WOMENS IMAGING REPORT ---
EXAM DESCRIPTION: LEFT SCREENING MAMMO W/CAD COMPLETED DATE/TIME: 04/29/2017 11:15 am REASON FOR STUDY: ROUTINE SCREENING; Z12.31 Z12.31 ENCNTR SCREEN MAMMOGRAM FOR MALIGNANT NEOPLASM O F ARTIE COMPARISON: 05/05/2016. TECHNIQUE: Standard craniocaudal and mediolateral oblique views of the breast recorded using digital acquisition. LIMITATIONS: None. FINDINGS: BREAST: left Findings present which are benign by mammographic criteria. No suspicious masses, calcifications or a rchitectural distortion. Pertinent benign findings: Small circumscribed nodule in the deep central breast unchanged. Faint ca lcifications in the medial breast, some of which may be vascular, also unchanged. Read with the assistance of CAD. .[facility] - R2 Cenova Version 1.3 .[facility] Imaging - R2 Cenova Version 1.3 .[facility] Imaging - R2 Cenova Version 2.4 .[facility] - R2 Cenova Version 2.4 .[facility] - R2 Jewel Hole Rough Opener Version 9.2 Benign mammographic findings may include one or more of the following: Smooth masses, popcorn/rim/co arse calcifications, asymmetries, post-procedure changes, and lesions with long-standing stability. IMPRESSION: NORMAL MAMMOGRAM. BIRADS 2. BREAST DENSITY: b. There are scattered areas of fibroglandular density. BIRAD: 2 BENIGN FINDING(S) RECOMMENDATION: RECOMMENDATION: ROUTINE SCREENING. COMMENT: The patient has been notified of the results by letter per [place] requirements. Additional no tification policies are in place for contacting patient with suspicious or incomplete findings. Quality ID #[id number]: The [employer] recommends an annual screening mammogram for women aged 40 years or over. This facility utilizes a reminder system to ensure that all patients receive reminder letters, and/or direct phone calls for appointments. This includes reminders for routine scr eening mammograms, diagnostic mammograms, or other Breast Imaging Interventions when appropriate. Th is patient will be placed in the appropriate reminder system. The [employer] (A[employer]) has developed recommendations for screening MRI of the breast s in certain patient populations, to be used in conjunction with mammography. Breast MRI surveillance may be appropriate for women with more than 20% lifetime risk of developing breast cancer as determi ping by genetic testing, significant family history of the disease, or history of mantle radiation for Hodgkins Disease. ACR Practice Guidelines 2008. TECHNICAL DOCUMENTATION: FINDING NUMBER: (1) ASSESSMENT: (1) JOB ID: [id number] [facility] [employer] [employer] [facility] [employer]- All Rights Reserved
== END ==
LOC: WI 09:15
PROVIDERS: ATTEND Family Medicine
DX: Z12.31 Encounter for screening mammogram for malignant neoplasm of breast (principal)
CPT/HCPCS: G0202-52

== ENCOUNTER → 2017-08-19 | Outpatient (CLI) | payer BC ==
--- NOTE | 2017-08-19 10:43 | RADIOLOGY REPORT (SQ) ---
EXAM DESCRIPTION: KNEE LEFT 4 VIEWS COMPLETED DATE/TIME: 08/19/2017 10:19 am REASON FOR STUDY: BILATERAL PRIMARY OSTEOARTHRITIS OF KNEE M17.0 BILATERAL PRIMARY OSTEOARTHRITIS O F KNEE COMPARISON: None. NUMBER OF VIEWS: Four views. TECHNIQUE: AP, lateral, and both oblique radiographic images acquired of the left knee. LIMITATIONS: None. FINDINGS: There is joint space narrowing and osteophyte formation in the patellofemoral and medial c ompartments. No chondrocalcinosis. No joint effusion. IMPRESSION: Osteoarthritis. TECHNICAL DOCUMENTATION: JOB ID: [id number] [employer]- All Rights Reserved Reading location - IP/workstation name: [email or web address]
--- NOTE | 2017-08-19 10:44 | RADIOLOGY REPORT (SQ) ---
EXAM DESCRIPTION: KNEE RIGHT 4 VIEWS COMPLETED DATE/TIME: 08/19/2017 10:19 am REASON FOR STUDY: BILATERAL PRIMARY OSTEOARTHRITIS OF KNEE M17.0 BILATERAL PRIMARY OSTEOARTHRITIS O F KNEE COMPARISON: 07/30/2016 NUMBER OF VIEWS: Four views. TECHNIQUE: AP, lateral, and both oblique radiographic images acquired of the right knee. LIMITATIONS: None. FINDINGS: There is joint space narrowing in the patellofemoral compartment. Mild osteophyte formati on in the lateral compartment. Loose body near the notch. No joint effusion. IMPRESSION: Osteoarthritis. No significant change. TECHNICAL DOCUMENTATION: JOB ID: [id number] [employer]- All Rights Reserved Reading location - IP/workstation name: [email or web address]
== END ==
LOC: OD 10:01
PROVIDERS: ATTEND Family Medicine
DX: M17.0 Bilateral primary osteoarthritis of knee (principal)

== ENCOUNTER 2017-08-24 10:12 | Day surgery (SDC) | payer BC ==
[~2017-08-24 10:12] MED LIST changes: -BUPIVACAINE INJ/PF LIPOSOME/PF 266 MG/20 ML SDV IJ PRN; -IBUPROFEN 800 MG/NS 250 ML IV PRN; -LACTATED RINGERS 1000 ML IV PRN; -LANSOPRAZOLE 15 MG TAB.RAP.DR PO PRN; -LIDOCAINE 0.5% INJ-PF (5 MG/ML) 50 ML SDV SUBCUT PRN; -OXYCODONE HCL SR 10 MG TABLET PO PRN; +PROPOFOL INJ 200 MG/20 ML VIAL IV ONE; -VANCOMYCIN HCL 1,000 MG in DEXTROSE 5%-WATER 250 ML IV PRN
[2017-08-24 11:44] VITALS: BP 151/75
--- NOTE | 2017-08-24 12:28 | Operative Report ---
Operative Report DATE OF SURGERY: 08/24/17 Operative Report: The risks, benefits and alternatives of the procedure including risks of bleeding, perforation requiring surgery are explained to the patient in detail and informed consent is obtained. Patient is brought back to the endoscopy suite and placed in a left, lateral decubital position. Timeout was called. Propofol medications administered. A rectal examination is done which did not reveal any masses, tears or fissures. An Olympus videoscope was inserted into the patient's rectum. The scope was then carefully advanced all the way to the cecum. The cecum was identified by the usual anatomical landmarks including the ileocecal valve as well as the appendiceal office and photodocumentation is obtained. The scope was then sequentially pulled back via the various segments of the colon including the ascending colon, hepatic flexure, transverse colon, splenic flexure, descending colon and finally into the rectosigmoid portions of the colon. Retroflexion maneuvers performed. PREOPERATIVE DIAGNOSIS: Colorectal cancer screening POSTOPERATIVE DIAGNOSIS: Normal screening colonoscopy OPERATION: Diagnostic colonoscopy SURGEON: JUAN F GIVENS ANESTHESIA: LMAC TISSUE REMOVED OR ALTERED: None. COMPLICATIONS: None. ESTIMATED BLOOD LOSS: None. INTRAOPERATIVE FINDINGS: As noted above. PROCEDURE: Patient tolerated procedure well. No immediate postprocedure complications are noted. Patient discharged in good condition. Discharge date August 24, 2017. Discharge diet: Regular. Discharge activity: Regular. 2-3 week follow-up to discuss findings. Patient is instructed call the office or proceed to the emergency room should there be any further problems or questions. 10 year surveillance colonoscopy.
== END 2017-08-24 11:43 | disposition home or self-care (01) ==
LOC: END 10:12
PROVIDERS: ATTEND Internal Medicine Gastroenterology
PROC: 0DJD8ZZ Inspection of Lower Intestinal Tract, Via Natural or Artificial Opening Endoscopic (ICD-10-PCS; principal; 2017-08-24 13:30)
DX: Z12.11 Encounter for screening for malignant neoplasm of colon (principal); M06.9 Rheumatoid arthritis, unspecified; E66.9 Obesity, unspecified; M19.90 Unspecified osteoarthritis, unspecified site; M47.9 Spondylosis, unspecified; I10 Essential (primary) hypertension; M17.0 Bilateral primary osteoarthritis of knee; I25.2 Old myocardial infarction; Z79.51 Long term (current) use of inhaled steroids; Z79.899 Other long term (current) drug therapy; Z79.1 Long term (current) use of non-steroidal anti-inflammatories (NSAID); Z85.3 Personal history of malignant neoplasm of breast; Z68.34 Body mass index [BMI] 34.0-34.9, adult
CPT/HCPCS: 45378; J2704; 812